=== PATIENT | female | born 1940 | race Caucasian/White ===

== ENCOUNTER 2017-03-17 06:29 | Inpatient (IN) | payer OTHER ==
[~2017-03-17] VITALS: Ht 167.6 cm; Wt 75.9 kg
--- NOTE | ~2017-03-17 | D ---
[facility] [place] [address] DISCHARGE SUMMARY Name: KATERINA BANKS Room #: 213-P ADM IN M.R.#: [id number] Admission: 03/18/17 Attend Phys: John Jacobson MD Discharge: Date of : 38 Report #: [id number] THIS REPORT FOR: //name// CC: David Jacobson HISTORY: The patient is a 76-year-old female with history of AFib and sick sinus syndrome who is here for dual chamber pacemaker implantation. She underwent successful implantation of a [employer] pacemaker and the procedure went without complications. HOSPITAL COURSE: The patient was monitored overnight. Her device was interrogated and found to be functioning normally. Her chest x-ray showed no evidence of pneumothorax and stable lead position. She did have a slight hematoma noted. Postoperative day #1, the patient was complaining of increasing shortness of breath and fatigue. Based on her chest x-ray, it looked like she likely has some COPD and therefore, I recommended pulmonary evaluation. I also thought that maybe there was some pulmonary edema. I checked her proBNP and this was elevated in the 5000 range. I gave her some IV diuretics overnight and she received some nebulizers by the pulmonary service and the following day, she was feeling better. She was denying any chest pain. Her hematoma was still present, but was not intense and there was no drainage. As such, I felt she was stable for discharge home. She was discharged on her same home medications with the exception of her anticoagulant, which I told her not to resume until I saw her back in clinic in 7-10 days. An echo performed while in the hospital showed her EF remains around 45% and there is no pericardial effusion. Discharge instructions were reviewed. Medications were reviewed and she understood to follow up in 7-10 days for her site check and device interrogation. By: [id number] John Jacobson MD /nt
--- NOTE | ~2017-03-17 | 2DMMODE ---
[address] [address] 2 D/M-MODE ECHOCARDIOGRAM Name: KATERINA BANKS Room #: 213-P ADM IN .R.#: [id number] Admission: 03/18/17 Attend Phys: John Jacobson Discharge: Date of : 36 Date of Service: 03/18/17 1506 Report #: [id number] THIS REPORT FOR: //name// APPROVED REPORT Study performed: 03/18/2017 13:11:45 EXAM: Limited 2D Echocardiogram Patient Location: In-Patient Room #: 213 Blood Pressure: 173/87 mmHg HR: 84 bpm Other Information Study Quality: Good Indications Congestive Heart Failure Pacemaker Cardiomyopathy Hypertension/HDD Left Ventricle The left ventricle is normal size. There is normal left ventricular wall thickness. Left ventricular systolic function is mildly decreased. LVEF is 40-45%. Right Ventricle The right ventricle is normal size. The right ventricular systolic function is normal. Pacemaker lead is present in the right ventricle. Aortic Valve The Aortic valve is sclerotic. Mitral Valve Mitral valve leaflets are thickened. Tricuspid Valve The tricuspid valve is normal in structure. Pulmonic Valve The pulmonary valve is normal in structure. [address] [address] 2 D/M-MODE ECHOCARDIOGRAM Name: KATERINA BANKS Room #: 213-P ADM IN .R.#: [id number] Admission: 03/18/17 Attend Phys: John Jacobson Discharge: Date of : 36 Date of Service: 03/18/17 1506 Report #: [id number] Great Vessels Aortic root is dilated. Pericardium There is no pericardial effusion. <Conclusion> The left ventricle is normal size. LVEF is 40-45%. The right ventricle is normal size. Pacemaker lead is present in the right ventricle. The right ventricular systolic function is normal. The Aortic valve is sclerotic. Mitral valve leaflets are thickened. Aortic root is dilated. There is no pericardial effusion. <ELECTRONICALLY SIGNED> By: Jt Haines MD 03/18/17 1506 1506 1506 Jt Haines MD /INF
--- NOTE | ~2017-03-17 | HC ---
[facility] [place] [address] [place] [address] CONSULTATION Name: KATERINA BANKS Room #: 213-P ADM IN M.R.#: [id number] Admission: 03/18/17 Attend Phys: John Jacobson MD Discharge: Date of : 38 Report #: [id number] THIS REPORT FOR: //name// CC: David Jacobson DATE OF SERVICE: 03/18/2017 PRIMARY CARE PHYSICIAN: Dr. David Higginbotham. REFERRAL PHYSICIAN: John Jacobson MD REASON FOR REFERRAL: Hypoxia. HISTORY OF PRESENT ILLNESS: The patient is a 76-year-old white female who is status post placement of a pacemaker, now with hypoxia. A pulmonary consultation was requested. Patient underwent placement of a pacemaker yesterday. During the perioperative period, patient was found to be hypoxic. For that reason, a pulmonary consultation was requested. The patient has smoked for many years, but quit over 20 years ago. She has been told in the past that she has COPD. She also has sleep apnea and is on CPAP. She was not able to use it since admission. Otherwise, she states that she has been doing fairly well from pulmonary standpoint. Currently, she is quite fatigued and tired. She was not able to use her CPAP as mentioned above. Otherwise, denies any productive cough, night sweats or chills. PAST MEDICAL HISTORY: Remarkable for tachy-jerry syndrome, status post permanent pacemaker placement, coronary artery disease, ischemic cardiomyopathy, ejection fraction 40-45%, ascending aortic aneurysm status post repair in 1991, hypotension, JOSEPH on CPAP, breast cancer in the past, ongoing radiation therapy. PAST SURGICAL HISTORY: As mentioned above, includes hysterectomy, lumpectomy. ALLERGIES: Multiple including ATENOLOL, CLONIDINE, CINOBAC, KEFLEX, IBUPROFEN, MACRODANTIN, PENICILLIN, BACTRIM, REGLAN, CLONIDINE causes rash. [facility] [address] [place] [address] CONSULTATION Name: KATERINA BANKS Room #: 213-P [facility] IN [facility]#: [id number] Admission: 03/18/17 Attend Phys: John Jacobson MD Discharge: Date of : 38 Report #: [id number] HOME MEDICATIONS: Reviewed. FAMILY HISTORY: Notable for coronary artery disease in father who passed at the age of 46, mother for cancer, unknown type. SOCIAL HISTORY: She has smoked up till 1991. She lives with a significant other. She is retired. REVIEW OF SYSTEMS: As mentioned above, otherwise 10-point system review negative. PHYSICAL EXAMINATION: GENERAL: She is awake, appears somewhat drowsy and no distress. VITAL SIGNS: Temperature is 98.7 degrees Fahrenheit, pulse is 74, respiratory rate is 18, blood pressure 147/64 mmHg, saturation %. HEENT: Normocephalic, atraumatic. NECK: Supple, without lymphadenopathy or thyromegaly. CHEST: Air movements are reduced due to poor effort. Otherwise, no obvious wheezes or rales. CARDIOVASCULAR: Normal S1, S2. No murmurs or gallop. There is no JVD. There is no carotid bruit. Pulses are 2+/4+ bilaterally. ABDOMEN: Soft, nontender, no organomegaly or masses felt. GENITOURINARY: Deferred. RECTAL: Deferred. EXTREMITIES: There is no edema, cyanosis or clubbing. LABORATORY DATA: Portable chest x-ray shows an elevated right hemidiaphragm. Otherwise, lung hong are clear. Cardiomegaly is present. Electrolytes are normal. WBC 9500, hemoglobin is 15.9, saturation is 93% on 2 liters of O2. IMPRESSION: 1. Hypoxia in this 76-year-old white female with history of chronic obstructive pulmonary disease, obstructive sleep apnea. She recently had a pacemaker placed. Cause of hypoxia may be due to underlying sleep apnea and possible chronic obstructive pulmonary disease. Chest x-ray appears to be clear. I do not think she has aspiration and pulmonary embolus is felt to be less likely. 2. Tachy-jerry syndrome, status post permanent pacemaker placement. 3. Home CPAP. 4. Coronary artery disease, ischemic cardiomyopathy, recommendation would suggest chest physiotherapy, incentive spirometry, bronchodilators for now for presumed chronic obstructive pulmonary disease, followup chest x-ray. Suspect early ambulation along with chest physiotherapy would help. We will also start home CPAP starting to night. [address] [address] CONSULTATION Name: KATERINA BANKS Room #: 213-P ADM IN M.R.#: [id number] Admission: 03/18/17 Attend Phys: John Jacobson MD Discharge: Date of : 38 Report #: [id number] Thank you for the consultation. By: 1306 2255 Dimitri Connors MD /blair
--- NOTE | ~2017-03-17 | P ---
[facility] [place] [address] [place] [address] PROCEDURE REPORT Name: KATERINA BANKS Room #: REG MAINENeo Rosen#: [id number] Admission: 03/17/17 Attend Phys: John Jacobson MD Discharge: Date of : 38 Report #: [id number] THIS REPORT FOR: //name// CC: David Jacobson PROCEDURE: Pacemaker implantation. HISTORY: The patient is a 76-year-old female with history of atrial fibrillation and sick sinus syndrome with symptomatic bradycardia, here for dual-chamber pacemaker implantation. ANESTHESIA: The patient underwent MAC anesthesia, with no anesthesia-related complications. DESCRIPTION OF PROCEDURE: The patient underwent informed consent. We discussed the details of the procedure including the risks, which include but not limited to bleeding, infection, vascular damage, cardiac perforation and pneumothorax. She understood these risks and is willing to proceed. As such, she is brought to the EP laboratory in a fasting and sedated state and prepped and draped in a sterile fashion and received IV antibiotics prior to initiation of the procedure and a venogram was performed to ensure patency of the left axillary vein. Next, I injected 20 mL of lidocaine below the level of the clavicle. Incision was made, pocket was created over the prepectoral fascia and access was obtained twice in the left axillary vein using the extrathoracic approach, which she has positioned using the modified Seldinger technique. Leads were prised into the right ventricular apex and an atrial lead was placed in the lateral right atrium, with both demonstrating adequate pacing and sensing thresholds. The leads were sutured to the prepectoral fascia. The device was connected to the leads and then the pocket was irrigated with vancomycin solution. Also a pursestring suture was placed around the leads as there was some bleeding around the leads from high PA pressures. The device was tested and found to be functioning normally and then the pocket was closed in 3 layers using 2-0 for the deep layer, 3-0 for the mid layer and 4-0 for the subcuticular layer and surgical glue was placed to the outer incision. The patient awoke neurologically and hemodynamically intact, with no complications and no significant bleeding. The implanted pacemaker is a [employer] model# NO1969, serial #[id number]. Atrial lead is a [employer], model #2088TC, 52 cm, serial# [id number]. The atrial lead demonstrated a P-wave of 1.4 millivolts, pacing impedance of 530 ohms and the pacing threshold of 1.25 volts at 0.4 milliseconds. The RV lead was a [employer] model #2088TC, 58 cm, serial #[id number]. The RV lead demonstrated an R-wave of 11.2 millivolts, pacing impedance of 610 ohms and the pacing threshold of 0.5 volts at 0.4 milliseconds. The device was programmed to the DDDR 60-130 mode. [facility] [address] [place] [address] PROCEDURE REPORT Name: KATERINA BANKS Room #: REG JASKARAN Rosen#: [id number] Admission: 03/17/17 Attend Phys: John Jacobson MD Discharge: Date of : 38 Report #: [id number] CONCLUSIONS: 1. Successful dual-chamber pacemaker implantation. 2. Satisfactory atrial and ventricular pacing and sensing thresholds. By: 1057 1159 John Jacobson MD /nt
--- NOTE | ~2017-03-17 | H ---
[facility] [address] [place] [address] HISTORY AND PHYSICAL Name: KATERINA BANKS Room #: 213-P [facility] IN M.R.#: [id number] Admission: 03/18/17 Attend Phys: John Jacobson MD Discharge: 03/19/17 Date of : 38 Report #: [id number] THIS REPORT FOR: //name// For History and Physical, please see office documentation/handwritten note in the patient's medical record. By: 0000 1547 John Jacobson MD /
[~2017-03-17 06:29] MED LIST: AMLODIPINE BESYL5 MG PO; ASPIRIN EC81 M1 PO; CARDIZEM CD360 MG PO; CATAPRES-TTS 10.1 MG PO; CELEXA 20 MG TA20 MG PO; CENTRUM SILVER1 EAC4 PO; COQ-10100 MG PO; CRESTOR10 MG PO; DILTIAZEM 24HR240 M1 PO; DIOVAN320 MG PO; FLONASE 0.05%50 MCG NASAL; HYDRALAZINE 2525 M1 GT; HYDRALAZINE 2525 MG PO; HYDROCHLOROTHIA25 M2 PO; HYDROCHLOROTHIA50 MG PO; IMDUR 30 MG TAB30 M1 PO; IMDUR 60 MG TAB60 M1 PO; INNOPRAN XL80 MG PO; LEVOTHYROXIN0.112 M1 PO; LEVOTHYROXIN0.125 M1 PO; LISINOPRIL20 MG PO; LOFIBRA200 MG PO; MECLIZINE HCL12.5 MG PO; METOPROLOL SUCC50 MG PO; MIRALAX17 GM PO; MULTAQ 400 MG400 MG PO; NORCO 5-325 TA1 EACH PO; NORVASC5 M1 PO; POTASSIUM20 PO; SIMVASTATIN20 MG PO; TESSALON200 MG PO; VALIUM2 MG PO; XARELTO10 MG PO; ZPAK PO
[2017-03-17] MEDS ORDERED: MULTAQ400 MG PO (06:52)
[2017-03-17 06:57] LABS: HEMATOCRIT 45.6 % (37.0-47.0); HEMOGLOBIN 15.3 gm/dL (12.0-15.0); MCHC 33.6 g/dL (28.0-37.0); MCV 92.5 fL (80.0-100.0); RBC 4.93 mil/uL (4.20-5.00); RDW 15.5 % (10.5-14.5); WBC 5.5 thou/uL (4.0-11.0)
[2017-03-17 06:59] VITALS: BP 173/72
[2017-03-17 07:03] LABS: CALCIUM 9.5 mg/dL (8.5-10.1); CREATININE 0.9 mg/dL (0.6-1.0)
[2017-03-17 07:08] LABS: ALBUMIN 3.8 g/dL (3.4-5.0); TOTAL BILIRUBIN 0.7 mg/dL (<0.1-1.0); TOTAL PROTEIN 8.1 g/dL (6.4-8.2)
[2017-03-17 07:12] LABS: APTT 29.6 Seconds (24.5-32.8); PROTIME 10.7 Seconds (9.3-11.4)
[2017-03-17 12:19] VITALS: BP 137/62
[2017-03-17 20:02] VITALS: BP 136/63
[2017-03-18 00:07] VITALS: BP 155/80
[2017-03-18 07:10] VITALS: BP 173/87
[2017-03-18 09:40] LABS: HEMATOCRIT 47.2 % (37.0-47.0); HEMOGLOBIN 15.9 gm/dL (12.0-15.0); MCH 31.1 pg (26.0-34.0); MCHC 33.6 g/dL (28.0-37.0); MCV 92.8 fL (80.0-100.0); RBC 5.09 mil/uL (4.20-5.00); RDW 15.1 % (10.5-14.5); WBC 9.5 thou/uL (4.0-11.0)
[2017-03-18 10:09] LABS: ALBUMIN 3.5 g/dL (3.4-5.0); CALCIUM 9.2 mg/dL (8.5-10.1); CREATININE 0.9 mg/dL (0.6-1.0); POTASSIUM 3.6 mmol/L (3.5-5.1); TOTAL BILIRUBIN 0.9 mg/dL (<0.1-1.0); TOTAL PROTEIN 7.9 g/dL (6.4-8.2)
[2017-03-18 11:30] VITALS: BP 147/64
[2017-03-18 15:50] VITALS: BP 148/66
[2017-03-18 20:49] VITALS: BP 122/59
[2017-03-19 04:02] LABS: CALCIUM 9.2 mg/dL (8.5-10.1); POTASSIUM 3.5 mmol/L (3.5-5.1)
[2017-03-19 04:45] VITALS: BP 133/59
[2017-03-19 07:50] VITALS: BP 115/62
[2017-03-19 11:20] VITALS: BP 122/61
[2017-03-19 13:07] VITALS: BP 122/61
== END 2017-03-19 14:28 | disposition home or self-care (01) | DRG 242 ==
LOC: CATH 06:29 → 2N 12:19
PROVIDERS: Internal Medicine Cardiovascular Disease
PROC: 02H63JZ Insertion of Pacemaker Lead into Right Atrium, Percutaneous Approach (ICD-10-PCS; principal; 2017-03-17)
PROC: 02HK3JZ Insertion of Pacemaker Lead into Right Ventricle, Percutaneous Approach (ICD-10-PCS; principal; 2017-03-17)
PROC: 0JH606Z Insertion of Pacemaker, Dual Chamber into Chest Subcutaneous Tissue and Fascia, Open Approach (ICD-10-PCS; principal; 2017-03-17)
DX: I49.5 Sick sinus syndrome (principal); J96.01 Acute respiratory failure with hypoxia; I25.10 Atherosclerotic heart disease of native coronary artery without angina pectoris; I71.2 Thoracic aortic aneurysm, without rupture; I10 Essential (primary) hypertension; E78.5 Hyperlipidemia, unspecified; Z60.2 Problems related to living alone; G47.33 Obstructive sleep apnea (adult) (pediatric); I48.91 Unspecified atrial fibrillation; J44.9 Chronic obstructive pulmonary disease, unspecified; I25.5 Ischemic cardiomyopathy; Z90.710 Acquired absence of both cervix and uterus; Z88.0 Allergy status to penicillin; Z88.1 Allergy status to other antibiotic agents; Z79.899 Other long term (current) drug therapy; Z88.4 Allergy status to anesthetic agent; Z82.49 Family history of ischemic heart disease and other diseases of the circulatory system; Z80.9 Family history of malignant neoplasm, unspecified; Z85.3 Personal history of malignant neoplasm of breast; Z87.891 Personal history of nicotine dependence
CPT/HCPCS: 10081; 62110; 70005

== ENCOUNTER 2017-04-02 15:44 | Inpatient (IN) | payer OTHER ==
[~2017-04-02] VITALS: Ht 167.6 cm; Wt 76.2 kg
--- NOTE | ~2017-04-02 | EKG ---
[address] [place] [address] ELECTROCARDIOGRAM REPORT Name: KATERINA BANKS Room #: 214-P [facility] IN M.R.#: [id number] Admission: 04/02/17 Attend Phys: Trino Garcia MD Discharge: 04/03/17 Date of : 38 Report #: [id number] THIS REPORT FOR: //name// [facility] ED Test Date: 2017-04-02 Test Time: 15:56:12 Pat Name: KATERINA BANKS Department: Room: [facility] Gender: F Executive Marketing Assistant: KHANH : 1940 Requested By: Martin Garza Order Number: [id number] MD: James Jimenez Measurements Intervals [place] Rate: 60 P: VA: 223 QRS: 23 QRSD: 132 T: 139 QT: 493 QTc: 493 Interpretive Statements Sinus rhythm Borderline prolonged VA interval Incomplete Left bundle branch block Compared to ECG 01/01/2017 08:54:42 Left bundle-branch block now present Ectopic atrial tachycardia, unifocal no longer present Electronically Signed On 04-04-2017 13:48:34 CDT by James Jimenez [email or web address] <ELECTRONICALLY SIGNED> By: James Jimenez MD, [facility] 04/04/17 1348 1556 1556 James Jimenez MD, [facility] /EPI
--- NOTE | ~2017-04-02 | HC ---
[facility] [place] [address] CONSULTATION Name: KATERINA BANKS Room #: 214-P [facility] IN ..#: [id number] Admission: 04/02/17 Attend Phys: Trino Garcia MD Discharge: 04/03/17 Date of : 38 Report #: [id number] THIS REPORT FOR: //name// CC: David Garcia HISTORY OF PRESENT ILLNESS: The patient is a 76-year-old female well known to us. She has had just recently a pacemaker placed by Dr. Jacobson. She has had chronic dizziness and longstanding coronary artery disease with a chronically occluded right coronary artery. Ejection fraction 45-50% range with a mild to moderate MR and TR, moderate AI. She has had a prior ascending aortic stent graft. She has had some underlying significant chronic obstructive pulmonary disease and some paroxysmal atrial fibrillation. Chronic vertigo. Multiple drug allergies. Had 2 episodes of epigastric discomfort with them, associated with some left arm and shoulder. Enzymes are negative. Her EKG does not have any significant changes on it. She has intermittently paced. HOME MEDICATIONS: Have been diltiazem 360, Xarelto 20, Multaq 400 b.i.d., valsartan 320, potassium 20, Crestor 10, Imdur 60, levothyroxine and CoQ10. PAST MEDICAL HISTORY: Positive for coronary artery disease, sick sinus syndrome, atrial fibrillation, tachybrady with recent pacemaker placement, hypercholesterolemia, hysterectomy, coronary artery disease with an occluded right coronary artery, which has been collateralized. Mild ischemic cardiomyopathy, functional class 1 aortic dissection repair same aorta 1991. She has had breast cancer and a lumpectomy in the left breast. REVIEW OF SYSTEMS: Essentially negative except for stated above. SOCIAL HISTORY: She is no alcohol use. She is a prior smoker. She quit 20 years ago. FAMILY HISTORY: Father of coronary artery disease at age 46. Mother of cancer. ALLERGIES: ATENOLOL, CLONIDINE, PENICILLIN, KEFLEX, MACRODANTIN, ATORVASTATIN, SIMVASTATIN, REGLAN AND IBUPROFEN. PHYSICAL EXAMINATION: VITAL SIGNS: Blood pressure 140/78, pulse is 60 and regular. HEENT: Eyes reveal xanthelasmas. Pharynx is clear. NECK: Shows preserved upstrokes without JVD or bruits. ABDOMEN: Slightly tender in the epigastric area. EXTREMITIES: Reveal trace nonpitting edema. The left upper extremity pacemaker site incision is clean and dry. There is some ecchymosis resolving, this was placed 10 days prior. Extremities reveal trace of nonpitting edema. NEUROLOGIC: Nonfocal. [address] [address] CONSULTATION Name: KATERINA BANKS Room #: 214-P [facility] IN ..#: [id number] Admission: 04/02/17 Attend Phys: Trino Garcia MD Discharge: 04/03/17 Date of : 38 Report #: [id number] SKIN: Warm and dry without xanthoma or ulcer. MUSCULOSKELETAL: Generalized arthritic changes. DISCHARGE DIAGNOSES: 1. Chest pain, suspect noncardiac, negative enzymes. 2. History of paroxysmal or atrial fibrillation and sick sinus syndrome, status post pacemaker, stable. 3. Hypertension. 4. Hypercholesterolemia. 5. Coronary artery disease with history of an occluded right coronary artery, I suspect GI etiology of this chest pain. 6. Chronic vertigo. RECOMMENDATIONS AND PLAN: Would recommend Deridder diet in addition of a PPI, continue home medications. We will obtain outpatient nuclear stress testing pharmacologic this week. She will call with any recurrent pain. She still to avoid left upper extremity use due to the recent pacemaker. This was recently interrogated by Dr. Jacobson this week and that is scheduled to be reinterrogated in June. She will call with any recurrent issues. By: 0935 1258 Tono Bender MD, FACC /nt
[2017-04-02 15:44] VITALS: BP 141/58
[~2017-04-02 15:44] MED LIST changes: +MULTAQ400 MG PO
[2017-04-02 16:14] LABS: ABSOLUTE NEUTROPHILS 5.4 thou/uL (1.4-8.2); BASOPHILS 0.8 % (0.0-2.0); EOSINOPHILS 3.1 % (0.0-3.0); HEMATOCRIT 41.3 % (37.0-47.0); HEMOGLOBIN 14.1 gm/dL (12.0-15.0); LYMPHOCYTES 12.8 % (24.0-44.0); MCH 31.6 pg (26.0-34.0); MCHC 34.1 g/dL (28.0-37.0); MCV 92.6 fL (80.0-100.0); MONOCYTES 7.8 % (1.0-8.0); PLATELET COUNT 250 thou/uL (150-400); POLYS 75.5 % (36.0-66.0); RBC 4.46 mil/uL (4.20-5.00); RDW 14.7 % (10.5-14.5); WBC 7.2 thou/uL (4.0-11.0)
[2017-04-02 16:16] LABS: MANUAL DIFF NO
[2017-04-02 16:22] LABS: CALCIUM 8.9 mg/dL (8.5-10.1); POTASSIUM 3.8 mmol/L (3.5-5.1)
[2017-04-02 16:34] LABS: TROPONIN-I 0.04 ng/mL (<0.04-0.07)
[2017-04-02 17:40] VITALS: BP 149/56
[2017-04-02] MEDS ORDERED: XARELTO20 MG PO (17:42)
[2017-04-02 18:09] VITALS: BP 157/58
[2017-04-02 22:13] LABS: URINE BILIRUBIN NEGATIVE (Negative); URINE BLOOD NEGATIVE (Negative); URINE COLOR YELLOW; URINE GLUCOSE-RANDOM* NEGATIVE (Negative); URINE KETONES NEGATIVE (Negative); URINE NITRITE NEGATIVE (Negative); URINE PROTEIN (DIPSTICK) NEGATIVE (Negative); URINE UROBILINOGEN 0.2 E.U./dl (0.2-1.0)
[2017-04-03 00:15] VITALS: BP 135/66
[2017-04-03 03:23] LABS: ALBUMIN 3.3 g/dL (3.4-5.0); CALCIUM 8.7 mg/dL (8.5-10.1); CREATININE 0.9 mg/dL (0.6-1.0); TOTAL BILIRUBIN 0.4 mg/dL (<0.1-1.0); TOTAL PROTEIN 6.9 g/dL (6.4-8.2); TROPONIN-I 0.05 ng/mL (<0.04-0.07)
[2017-04-03 04:22] LABS: HEMATOCRIT 45.4 % (37.0-47.0); HEMOGLOBIN 15.3 gm/dL (12.0-15.0); MCH 31.5 pg (26.0-34.0); MCHC 33.7 g/dL (28.0-37.0); MCV 93.5 fL (80.0-100.0); RBC 4.85 mil/uL (4.20-5.00); RDW 14.9 % (10.5-14.5); WBC 7.1 thou/uL (4.0-11.0)
[2017-04-03 04:35] VITALS: BP 160/81
[2017-04-03 07:19] VITALS: BP 149/75
[2017-04-03] MEDS ORDERED: ANTIVERT25 MG PO (09:30)
[2017-04-03] MEDS ORDERED: PROTONIX 20 MG20 M1 PO (09:31)
[2017-04-03 11:12] VITALS: BP 149/75
[2017-04-03 12:55] VITALS: BP 149/75
== END 2017-04-03 12:15 | disposition home or self-care (01) | DRG 392 ==
LOC: ER 15:44 → EROBS 17:09 → 2N 17:45
PROVIDERS: Family Medicine; Nurse Practitioner
DX: K21.9 Gastro-esophageal reflux disease without esophagitis (principal); I50.22 Chronic systolic (congestive) heart failure; E78.00 Pure hypercholesterolemia, unspecified; F41.9 Anxiety disorder, unspecified; I48.91 Unspecified atrial fibrillation; I25.10 Atherosclerotic heart disease of native coronary artery without angina pectoris; I49.5 Sick sinus syndrome; G47.33 Obstructive sleep apnea (adult) (pediatric); I11.0 Hypertensive heart disease with heart failure; I35.1 Nonrheumatic aortic (valve) insufficiency; Z85.3 Personal history of malignant neoplasm of breast; Z82.49 Family history of ischemic heart disease and other diseases of the circulatory system; Z88.1 Allergy status to other antibiotic agents; Z88.8 Allergy status to other drugs, medicaments and biological substances; Z90.710 Acquired absence of both cervix and uterus; I25.2 Old myocardial infarction; Z88.0 Allergy status to penicillin; Z87.891 Personal history of nicotine dependence; Z79.899 Other long term (current) drug therapy; Z95.0 Presence of cardiac pacemaker; Z80.9 Family history of malignant neoplasm, unspecified
CPT/HCPCS: 10081

== ENCOUNTER → 2017-04-23 | Outpatient (CLI) | payer OTHER ==
[~2017-04-23] VITALS: Ht 167.6 cm; Wt 76.2 kg
[~2017-04-23] MED LIST changes: +ANTIVERT25 MG PO; +PROTONIX 20 MG20 M1 PO; +UNICOMPLEX M TA1 TA1 PO; +XARELTO20 MG PO
[2017-04-23 07:03] VITALS: BP 152/87
[2017-04-23 07:15] LABS: ABSOLUTE NEUTROPHILS 4.8 thou/uL (1.4-8.2); BASOPHILS 0.8 % (0.0-2.0); EOSINOPHILS 3.6 % (0.0-3.0); HEMATOCRIT 48.9 % (37.0-47.0); HEMOGLOBIN 16.6 gm/dL (12.0-15.0); LYMPHOCYTES 19.1 % (24.0-44.0); MCH 32.3 pg (26.0-34.0); MCV 94.9 fL (80.0-100.0); PLATELET COUNT 216 thou/uL (150-400); POLYS 67.5 % (36.0-66.0); RBC 5.15 mil/uL (4.20-5.00); RDW 15.8 % (10.5-14.5); WBC 7.1 thou/uL (4.0-11.0)
[2017-04-23 07:19] LABS: MANUAL DIFF NO
[2017-04-23 07:27] LABS: CALCIUM 9.4 mg/dL (8.5-10.1); POTASSIUM 3.8 mmol/L (3.5-5.1)
[2017-04-23 07:32] LABS: ALBUMIN 3.9 g/dL (3.4-5.0); TOTAL BILIRUBIN 0.6 mg/dL (<0.1-1.0); TOTAL PROTEIN 8.1 g/dL (6.4-8.2)
[2017-04-23 08:09] LABS: INR 1.6
[2017-04-23 08:12] LABS: PROTIME 16.5 Seconds (9.3-11.4)
[2017-04-23 08:13] LABS: APTT 39.2 Seconds (24.5-32.8)
== END | disposition home or self-care (01) ==
LOC: CATH 06:45
PROVIDERS: Internal Medicine Cardiovascular Disease
DX: I48.91 Unspecified atrial fibrillation (principal); I10 Essential (primary) hypertension; I25.2 Old myocardial infarction; I25.10 Atherosclerotic heart disease of native coronary artery without angina pectoris; I49.5 Sick sinus syndrome; E78.5 Hyperlipidemia, unspecified; E03.9 Hypothyroidism, unspecified; F41.9 Anxiety disorder, unspecified; G47.33 Obstructive sleep apnea (adult) (pediatric); Z95.0 Presence of cardiac pacemaker; Z87.891 Personal history of nicotine dependence; Z98.890 Other specified postprocedural states; Z88.8 Allergy status to other drugs, medicaments and biological substances; Z88.0 Allergy status to penicillin; Z79.899 Other long term (current) drug therapy
CPT/HCPCS: 62110; 62900

== ENCOUNTER 2017-06-04 08:44 | Inpatient (IN) | payer OTHER ==
[~2017-06-04] VITALS: Ht 162.6 cm; Wt 78.5 kg
[2017-06-04] VITALS (12 sets, daily range): BP systolic 111–152; BP diastolic 58–89
--- NOTE | ~2017-06-04 | HC ---
[facility] [place] [address] CONSULTATION Name: KATERINA BANKS Room #: REG [facility].#: [id number] Admission: 06/04/17 Attend Phys: John Jacobson MD Discharge: Date of : 38 Report #: [id number] THIS REPORT FOR: //name// CC: David Jacobson REASON FOR CONSULTATION: Congestive heart failure. HISTORY OF PRESENT ILLNESS: The patient is a 76-year-old female with history of coronary artery disease status post pacemaker implantation in March 2017 as well as recent cardioversions in April 2017 for atrial flutter. She did well for approximately a month when she called the clinic on Wednesday with recurrent palpitations. She came in the clinic yesterday and she was found to be in an atrial flutter. I attempted to pace her out of this, but this was unsuccessful. As such, I recommended that she comes in today for an elective cardioversion. She was looking rate prior to the cardioversion, underwent successful cardioversion with 100 joules synchronized shock. As such discharge orders were written and plans were made for her to follow up with me in a month. However, she eventually started developing increased shortness of breath and I was asked to see her. She appeared to be in some respiratory distress with O2 sats in the high 80s. I re-interrogated her pacemaker and it showed that she remained in sinus rhythm. She is being paced at a faster heart rate at 90-100 using an AFib suppression algorithm to hopefully keep her in normal rhythm. She denies any chest pain or chest tightness. PAST MEDICAL HISTORY: 1. Coronary artery disease, status post occluded right coronary artery. 2. Cardiomyopathy, EF of 40-45% based on echo in December 2016 with evidence of severe left atrial enlargement. 3. Paroxysmal AFib. 4. Aortic dissection, status post repair. 5. Hypertension. 6. Hyperlipidemia. 7. Obstructive sleep apnea. 8. Breast cancer. 9. Sick sinus syndrome, status post dual chamber [employer] pacemaker in March 2017. 10. DC cardioversion in April 2017 and 06/04/2017. Other medical problems, she was recently told by Dr. Connors that she has COPD. MEDICATIONS: Include Multaq, Bystolic, diltiazem and Xarelto. She is also on rosuvastatin, valsartan, Synthroid and Ativan. SOCIAL HISTORY: She does not smoke. FAMILY HISTORY: Noncontributory. [facility] [address] [place] [address] CONSULTATION Name: KATERINA BANKS Room #: REG [facility]#: [id number] Admission: 06/04/17 Attend Phys: John Jacobson MD Discharge: Date of : 38 Report #: [id number] ALLERGIES: Include multiple medications including atenolol, atorvastatin, Bactrim, cephalexin, clonidine, ibuprofen, metoclopramide, nitrofurantoin, penicillin G, simvastatin. PHYSICAL EXAMINATION: VITAL SIGNS: Heart rate is in the 80s-90s, blood pressure is stable, sats are now in the low 90s after we bumped up her oxygen to 5 liters. GENERAL: She is in mild respiratory distress. She is somewhat anxious, which is pretty normal for her. HEENT: Oropharynx is clear. NECK: Supple, no thyromegaly. HEART: Regular rate and rhythm with no murmurs, rubs, gallops. LUNGS: Clear bilaterally with some mild wheezes. ABDOMEN: Soft, nontender, nondistended with no hepatosplenomegaly. EXTREMITIES: There is no clubbing, cyanosis, edema. NEUROLOGIC: Cranial nerves 2-12 are intact. LABORATORY DATA: White count today 7.9, hemoglobin 16.2, platelets 200. Sodium is 139, potassium 4.3, creatinine is 1.0 ____. ASSESSMENT AND PLAN: In summary, the patient is a 76-year-old with history of coronary artery disease, congestive heart failure, AFib, status post cardioversion as well as chronic obstructive pulmonary disease. She is now in some mild respiratory distress with decreased oxygen saturations . This is probably from an acute exacerbation of her congestive heart failure due to the fact that she has been in atrial flutter with rapid ventricular response. There also may be a component of COPD and I would therefore recommend having the pulmonary service ____ as well. I have given her dose of Lasix and a breathing treating. We will get a chest x-ray and an echocardiogram and she can continue her home medications. By: 1224 1401 John Jacobson MD /nt
--- NOTE | ~2017-06-04 | EKG ---
[place] [address] [employer] [facility] [place] [address] ELECTROCARDIOGRAM REPORT Name: KATERINA BANKS Room #: 214-P [facility] IN M.R.#: [id number] Admission: 06/04/17 Attend Phys: Terry Acevedo MD Discharge: 06/06/17 Date of : 38 Report #: [id number] THIS REPORT FOR: //name// [facility] Test Date: 2017-06-04 Test Time: 12:37:06 Pat Name: KATERINA BANKS Department: Room: 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 [employer]: VICKIE : 1940 Requested By: John Jacobson Order Number: [id number] MD: James Jimenez Measurements Intervals [place] Rate: 108 P: 0 AR: 114 QRS: 60 QRSD: 112 T: 118 QT: 388 QTc: 520 Interpretive Statements Ventricular pacing No further analysis attempted due to paced rhythm Baseline wander in lead(s) II,III,aVR,aVL,aVF,V4,V6 Compared to ECG 04/02/2017 15:56:12 Ventricular pacing is now noted Electronically Signed On 06-08-2017 8:27:55 CDT by James Jimenez [email or web address] <ELECTRONICALLY SIGNED> By: James Jimenez MD, [facility] 06/08/17 0827 1237 1237 James Jimenez MD, FAC /EPI
--- NOTE | ~2017-06-04 | HC ---
[facility] [place] [address] CONSULTATION Name: KATERINA BANKS Room #: 238-P ADM IN M.R.#: [id number] Admission: 06/04/17 Attend Phys: Terry Acevedo MD Discharge: Date of : 36 Report #: [id number] THIS REPORT FOR: //name// CC: Terry Higginbotham PRIMARY PHYSICIAN: David Higginbotham MD REFERRAL PHYSICIAN: John Jacobson MD REASON FOR REFERRAL: Acute respiratory distress. HISTORY OF PRESENT ILLNESS: The patient is a 76-year-old white female who was known to this physician, now with acute respiratory distress. A pulmonary consultation was requested. The patient is known to this physician from her recent hospitalization. She was found to be hypoxic and felt to be related to COPD along with sleep apnea. Earlier today, she was undergoing cardioversion for her atrial flutter. Following the procedure, the patient began to complain of dyspnea along with hypoxia. Portable chest x-ray performed shows cardiomegaly with Virginie B lines consistent with heart failure. She was placed on O2 and subsequently on BiPAP. She was given diuretics. Since then, she is much improved. Chest discomfort has also improved. Otherwise, denies any chest pain, recent febrile illness, nausea, or vomiting. PAST MEDICAL HISTORY: COPD, JOSEPH on CPAP, coronary artery disease, ischemic cardiomyopathy with ejection fraction approximately 40%, paroxysmal atrial fibrillation, aortic dissection, status post repair; hypertension, hyperlipidemia, history of breast cancer, sick sinus syndrome, status post dual-chamber St. Catrachito permanent pacemaker placement in March 2017, status post radiation therapy for breast cancer. PAST SURGICAL HISTORY: As above including hysterectomy and lumpectomy. ALLERGIES: Multiple including ATENOLOL, CLONIDINE, CINOBAC, KEFLEX, IBUPROFEN, MACRODANTIN, PENICILLIN, BACTRIM, and REGLAN, some causes rash. HOME MEDICATIONS: Reviewed. FAMILY HISTORY: Notable for coronary artery disease in the father who at the age of 46. Mother with cancer of unknown type. SOCIAL HISTORY: The patient lives boyfriend. She is retired. She has [facility] [address] [place] [address] CONSULTATION Name: KATERINA BANKS Room #: 238-P [facility] IN [facility].#: [id number] Admission: 06/04/17 Attend Phys: Terry Acevedo MD Discharge: Date of : 38 Report #: [id number] smoked most of her life until 1991. REVIEW OF SYSTEMS: As above, otherwise 10-point system review negative. PHYSICAL EXAMINATION: GENERAL: She is awake, alert, in mild respiratory distress. VITAL SIGNS: Temperature is 97 degrees Fahrenheit, pulse is 112, respiratory rate is 31, blood pressure 152/89 mmHg, and saturation 94%. HEENT: Normocephalic, atraumatic. NECK: Supple, without any lymphadenopathy or thyromegaly. CHEST: Breath sounds are fair with few scattered crackles. No wheezes. CARDIOVASCULAR: Irregularly irregular. No obvious murmurs or gallop. Pulses are 2+/4+ bilaterally. ABDOMEN: Soft, nontender. No organomegaly or masses felt. GENITOURINARY: Deferred. RECTAL: Deferred. EXTREMITIES: There is no edema, cyanosis, or clubbing. LABORATORY DATA: Portable chest x-ray as mentioned above showing cardiomegaly, and Virginie B lines. Repeat echocardiogram performed earlier today shows ejection fraction now at 20%, left ventricle was dilated, left ventricular function is severely depressed, there is evidence of segmental wall motion abnormalities, right ventricle is dilated, severely dilated left atrium along with mildly dilated right atrium, [id number]-jj-zabbcyfr aortic regurgitation, uhnpoeyn-fg-mcdlaw mitral regurgitation, pulmonary artery pressure measuring about 60-65 mmHg. Troponin is 0.07. Arterial blood gas revealed pH 7.31, pCO2 of 48, pO2 93 on 100% FiO2. Electrolytes are normal. Creatinine is 1.0. Liver function profile is mildly elevated. WBC is 7900, hemoglobin 16.2. IMPRESSION: 1. Acute hypercapnic hypoxic respiratory failure in this 76-year-old white female. This is likely due to heart failure. Chronic obstructive pulmonary disease is likely contributing. 2. Chronic obstructive pulmonary disease, mild impairment. 3. Right diaphragmatic weakness, etiology unclear at this time. 4. Coronary artery disease with ischemic cardiomyopathy, ejection fraction now down to 20% with left ventricular dilatation, right ventricle dilatation. 5. Pulmonary hypertension secondary to pulmonary disease along with cardiomyopathy, pulmonary artery pressure as mentioned above. 6. Paroxysmal atrial fibrillation/flutter. 7. Hypertension. 8. Sick sinus syndrome, status post dual-chamber St. Catrachito permanent pacemaker placement. RECOMMENDATION: Continue diuresis as you are. Wean O2 if her saturation 90%. BiPAP p.r.n. The patient to resume home CPAP for sleep apnea. We will continue [facility] [address] [place] [address] CONSULTATION Name: KATERINA BANKS Room #: 238-P [facility] IN .R.#: [id number] Admission: 06/04/17 Attend Phys: Terry Acevedo MD Discharge: Date of : 38 Report #: [id number] bronchodilator therapy for now. Her COPD is mild. DVT and GI prophylaxis will be addressed. The patient can resume diet as tolerated. Thank you for this consultation. By: [id number] ANAYA Holman /blair
--- NOTE | ~2017-06-04 | 2DMMODE ---
[facility] [place] [address] 2 D/M-MODE ECHOCARDIOGRAM Name: KATERINA BANKS Room #: REG [facility]#: [id number] Admission: 06/04/17 Attend Phys: John Jacobson Discharge: Date of : 36 Date of Service: 06/04/17 1331 Report #: [id number] THIS REPORT FOR: //name// APPROVED REPORT Study performed: 06/04/2017 12:49:18 EXAM: Limited 2D, Doppler, and color-flow Echocardiogram Patient Location: CVL Status: NII Other Information Study Quality: Adequate Indications Short of breath s/p cardioversion. Hx: ISCM (40-45% 03/2017) PAF, pacemaker, aorta dissection with repair in 1991. COPD, HTN, HLP 2D Dimensions Aortic Root: 44.01 mm Tricuspid Valve TR Peak Randy.: 3.49 m/s RAP Estimate: 15.00 mmHg TR Peak Gr.: 48.70 mmHg Left Ventricle Left ventricle is dilated. Left ventricular systolic function is severely decreased. LVEF is 20%. WITH SEGMENTAL WALL MOTION ABNORMALITIES Right Ventricle Right ventricle is dilated. Right ventricular systolic function is moderately reduced. Atria Left atrium is severely dilated. Atrial septa appears aneurysmal. Right atrium is moderately dilated. Aortic Valve Aortic valve is calcified. Mild to moderate aortic regurgitation. Mitral Valve Mitral valve is normal in structure. Moderate to severe mitral regurgitation [facility] [address] [place] [address] 2 D/M-MODE ECHOCARDIOGRAM Name: KATERINA BANKS Room #: REG [facility]#: [id number] Admission: 06/04/17 Attend Phys: John Jacobson Discharge: Date of : 38 Date of Service: 06/04/17 1331 Report #: [id number] Tricuspid Valve Tricuspid valve is grossly normal in structure There is moderate tricuspid regurgitation. The right atrial pressure is estimated at 15 mmHg. There is moderate pulmonary hypertension with an estimated PAP of 60-65mmHg. Great Vessels Aortic root is dilated. IVC is dilated and collapses <50% with inspiration. Pericardium There is no pericardial effusion. <Conclusion> Left ventricle is dilated. Left ventricular systolic function is severely decreased. LVEF is 20%. WITH SEGMENTAL WALL MOTION ABNORMALITIES Right ventricle is dilated. Right ventricular systolic function is moderately reduced. Left atrium is severely dilated. Right atrium is moderately dilated. Aortic valve is calcified. Mild to moderate aortic regurgitation. Mitral valve is normal in structure. Moderate to severe mitral regurgitation Tricuspid valve is grossly normal in structure There is moderate tricuspid regurgitation. The right atrial pressure is estimated at 15 mmHg. There is moderate pulmonary hypertension with an estimated PAP of 60-65mmHg. <ELECTRONICALLY SIGNED> By: Jt Haines MD 06/04/171330 30 30 Jt Haines MD /INF
--- NOTE | ~2017-06-04 | P ---
[facility] [place] [address] PROCEDURE REPORT Name: KATERINA BANKS [id number] Admission: 06/04/17 Attend Phys: John Jacobson MD Discharge: Date of : 38 Report #: [id number] THIS REPORT FOR: //name// CC: David Jacobson DATE OF SERVICE: 06/04/2017. PROCEDURE: Cardioversion. PREOPERATIVE DIAGNOSIS: Atrial flutter. POSTOPERATIVE DIAGNOSIS: Atrial flutter. BRIEF HISTORY: The patient is a 76-year-old status post pacemaker implantation for sick sinus syndrome, who underwent recent cardioversion for atrial flutter and had recurrence. In the clinic yesterday I tried out of this which was unsuccessful. She is here for cardioversion. DESCRIPTION OF PROCEDURE: The patient underwent informed consent, she was prepped and draped in a standard fashion. She was then sedated by the Anesthesiology service and a 100 joule synchronized cardioversion resulted in mosque of sinus rhythm. Pacemaker was checked and found to be functioning normally. DISCHARGE CONCLUSIONS: Successful DC cardioversion. By: 1133 1301 John Jacobson MD /nt
[2017-06-04] MEDS ORDERED: LEVOTHYROXIN0.125 M1 PO (09:26)
[2017-06-04 09:38] LABS: HEMOGLOBIN 16.2 gm/dL (12.0-15.0); MCH 31.6 pg (26.0-34.0); RBC 5.11 mil/uL (4.20-5.00); RDW 15.8 % (10.5-14.5); WBC 7.9 thou/uL (4.0-11.0)
[2017-06-04 09:54] LABS: CALCIUM 9.7 mg/dL (8.5-10.1); POTASSIUM 4.3 mmol/L (3.5-5.1)
[2017-06-04 09:58] LABS: ALBUMIN 3.8 g/dL (3.4-5.0); TOTAL BILIRUBIN 0.9 mg/dL (<0.1-1.0); TOTAL PROTEIN 8.2 g/dL (6.4-8.2)
[2017-06-04 12:53] LABS: ABG SAMPLE TYPE ARTERIAL; BE(vivo) -2.9 mmol/L (-2 to +3); HCO3 23.9 mmol/L (22.0-26.0); LACTATE 1.64 mmol/L (0.5-2.0); O2(CT) 23.9 mL/dL (15.0-23.0); O2Hb 95.4 % (92.0-98.0); PCO2 48.3 mmHg (35.0-45.0); PO2 93.6 mmHg (80.0-100.0); STICK SITE L.BRACHIAL; pH 7.312 (7.360-7.450); sO2 96.5 % (92.0-98.0); tCO2 25.4 mmol/L (24.0-30.0)
[2017-06-04 13:36] LABS: TROPONIN-I 0.07 ng/mL (<0.04-0.07)
[2017-06-05] VITALS (17 sets, daily range): BP systolic 90–156; BP diastolic 46–87
[2017-06-05 05:25] LABS: HEMATOCRIT 46.7 % (37.0-47.0); MCH 32.2 pg (26.0-34.0); MCHC 34.3 g/dL (28.0-37.0); MCV 94.1 fL (80.0-100.0); PLATELET COUNT 163 thou/uL (150-400); RBC 4.96 mil/uL (4.20-5.00); RDW 15.3 % (10.5-14.5); WBC 7.9 thou/uL (4.0-11.0)
[2017-06-05 05:35] LABS: MANUAL DIFF YES
[2017-06-05 05:36] LABS: CALCIUM 8.6 mg/dL (8.5-10.1)
[2017-06-05 05:38] LABS: POTASSIUM 3.1 mmol/L (3.5-5.1)
[2017-06-05 06:56] LABS: ABSOLUTE NEUTROPHILS 7.3 thou/uL (1.4-8.2); TOTAL CELL COUNT 100
[2017-06-05 06:57] LABS: ANISOCYTOSIS 1+
[2017-06-05 06:58] LABS: LARGE PLATELETS FEW; POLYCHROMASIA OCCASIONAL
[2017-06-05 12:27] LABS: CALCIUM 8.7 mg/dL (8.5-10.1); CREATININE 1.4 mg/dL (0.6-1.0); MAGNESIUM 1.7 mg/dL (1.8-2.4); POTASSIUM 3.5 mmol/L (3.5-5.1)
[2017-06-06 03:00] VITALS: BP 129/77
[2017-06-06 05:30] LABS: ALBUMIN 3.2 g/dL (3.4-5.0); CALCIUM 8.9 mg/dL (8.5-10.1); CREATININE 1.2 mg/dL (0.6-1.0); PHOSPHORUS 3.6 mg/dL (2.5-4.9); POTASSIUM 4.1 mmol/L (3.5-5.1)
[2017-06-06 08:00] VITALS: BP 120/63
[2017-06-06] MEDS ORDERED: LASIX 40 MG TAB40 MG PO (08:24)
[2017-06-06 09:54] VITALS: BP 129/77
[2017-06-06 10:09] VITALS: BP 129/77
== END 2017-06-06 10:58 | disposition home or self-care (01) | DRG 291 ==
LOC: CATH 08:44 → ICU 15:53 → CATH 16:07 → 2N 06-05 17:34
PROVIDERS: Hospitalist; Internal Medicine; Internal Medicine Cardiovascular Disease; Internal Medicine Pulmonary Disease
PROC: 5A2204Z Restoration of Cardiac Rhythm, Single (ICD-10-PCS; principal; 2017-06-04)
PROC: 5A09357 Assistance with Respiratory Ventilation, Less than 24 Consecutive Hours, Continuous Positive Airway Pressure (ICD-10-PCS; 2017-06-04)
DX: I11.0 Hypertensive heart disease with heart failure (principal); J96.01 Acute respiratory failure with hypoxia; J96.02 Acute respiratory failure with hypercapnia; I71.00 Dissection of unspecified site of aorta; I48.92 Unspecified atrial flutter; I38 Endocarditis, valve unspecified; I50.23 Acute on chronic systolic (congestive) heart failure; I25.10 Atherosclerotic heart disease of native coronary artery without angina pectoris; I48.0 Paroxysmal atrial fibrillation; E78.5 Hyperlipidemia, unspecified; G47.33 Obstructive sleep apnea (adult) (pediatric); I49.5 Sick sinus syndrome; J44.9 Chronic obstructive pulmonary disease, unspecified; I25.5 Ischemic cardiomyopathy; I27.2 Other secondary pulmonary hypertension; E87.6 Hypokalemia; E83.42 Hypomagnesemia; Z88.0 Allergy status to penicillin; Z88.8 Allergy status to other drugs, medicaments and biological substances; Z88.6 Allergy status to analgesic agent; Z95.0 Presence of cardiac pacemaker; Z85.3 Personal history of malignant neoplasm of breast; Z88.1 Allergy status to other antibiotic agents; Z82.49 Family history of ischemic heart disease and other diseases of the circulatory system
CPT/HCPCS: 10078; 10081; 62110; 62900

== ENCOUNTER 2017-07-08 19:20 | Inpatient (IN) | payer OTHER ==
[~2017-07-08] VITALS: Ht 5 cm; Wt 73.9 kg
--- NOTE | ~2017-07-08 | EKG ---
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 : 1940 Requested By: Carl Yu Order Number: [id number] MD: James Jimenez Measurements Intervals [place] Rate: 152 P: 0 [place]: QRS: -45 QRSD: 170 T: 148 QT: 375 QTc: 597 Interpretive Statements Atrial fibrillation with a rapid ventricular response Occasional premature ventricular or aberrantly conducted supraventricular complexes Left bundle branch block Compared to ECG 06/04/2017 12:37:06 No significant change was found Electronically Signed On 07-09-2017 8:44:13 CDT by James Jimenez [email or web address] <ELECTRONICALLY SIGNED> By: James Jimenez MD, [facility] 07/09/17 0844 58 58 James Jimenez MD, [facility] /EPI
--- NOTE | ~2017-07-08 | 2DMMODE ---
[facility] [address] [place] [address] 2 D/M-MODE ECHOCARDIOGRAM Name: KATERINA BANKS Room #: 213-P ADM IN [facility].#: [id number] Admission: 07/08/17 Attend Phys: David Coulter MD Discharge: Date of : 38 Date of Service: 07/09/17 1053 Report #: [id number] THIS REPORT FOR: //name// APPROVED REPORT Study performed: 07/09/2017 09:27:16 EXAM: Comprehensive 2D, Doppler, and color-flow Echocardiogram Patient Location: Bedside Room #: 213 Status: routine BSA: 1.81 HR: 60 bpm BP: 130/68 mmHg Other Information Study Quality: Good Indications Congestive Heart Failure COPD Atrial Fibrillation Pacemaker CAD Hypertension/HDD History of Aortic root disection with repair. 2D Dimensions RVDd: 45.38 mm Ascending Ao: 41.88 (22-36mm) Aortic Root: 41.71 mm IVC: 25.00 mm Tricuspid Valve TR Peak Randy.: 3.36 m/s RAP Estimate: 10.00 mmHg TR Peak Gr.: 45.27 mmHg PA Pressure: 55.00 mmHg Left Ventricle Left ventricle is dilated. There is normal left ventricular wall thickness. Left ventricular ejection fraction is severely decreased. LVEF is 20-25%. Right Ventricle Right ventricle is dilated. Right ventricle is hypokinetic. Pacemaker lead is present in the right ventricle. [facility] [address] [place] [place] [address] 2 D/M-MODE ECHOCARDIOGRAM Name: KATERINA BANKS Room #: 213-P ADM IN ..#: [id number] Admission: 07/08/17 Attend Phys: David Coulter MD Discharge: Date of : 38 Date of Service: 07/09/17 1053 Report #: [id number] Atria Left atrium is dilated. Right atrium is dilated. Pacemaker lead is present in the right atrium. Aortic Valve The aortic valve is normal in structure. Aortic valve is calcified. Mild to moderate aortic regurgitation. Mitral Valve The mitral valve is normal in structure. severe mitral regurgitation with eccentric jet Tricuspid Valve The tricuspid valve is normal in structure. There is mild to moderate tricuspid regurgitation. The right atrial pressure is estimated at 10 mmHg. There is moderate pulmonary hypertension. Great Vessels Aortic root is dilated. Ascending aorta is dilated. The inferior vena cava is dilated with a decrease in inspiratory collapse. Pericardium There is no pericardial effusion. <Conclusion> Left ventricle is dilated. Left ventricular ejection fraction is severely decreased. LVEF is 20-25%. Right ventricle is dilated. Left atrium is dilated. Pacemaker lead is present in the right ventricle. Right atrium is dilated. Pacemaker lead is present in the right atrium. The aortic valve is normal in structure. Aortic valve is calcified. Mild to moderate aortic regurgitation. The mitral valve is normal in structure. severe mitral regurgitation with eccentric jet The tricuspid valve is normal in structure. There is mild to moderate tricuspid regurgitation. The right atrial pressure is estimated at 10 mmHg. There is moderate pulmonary hypertension. [facility] [address] [place] [address] 2 D/M-MODE ECHOCARDIOGRAM Name: KATERINA BANKS Room #: 213-P ADM IN .R.#: [id number] Admission: 07/08/17 Attend Phys: David Coulter MD Discharge: Date of : 38 Date of Service: 07/09/17 1053 Report #: [id number] Aortic root is dilated. Ascending aorta is dilated. <ELECTRONICALLY SIGNED> By: Jt Haines MD 07/09/17 1053 52 52 Jt Haines MD /INF
--- NOTE | ~2017-07-08 | EKG ---
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 : 1940 Requested By: Tono Bender Order Number: [id number] MD: James Jimenez Measurements Intervals [place] Rate: 60 P: 0 NM: 74 QRS: 51 QRSD: 143 T: 203 QT: 505 QTc: 505 Interpretive Statements Sinus rhythm Nonspecific intraventricular conduction delay Poor R wave progression Compared to ECG 06/04/2017 12:37:06 sinus rhythm has replaced atrial fibrillation Left bundle branch block is no longer present Electronically Signed On 07-09-2017 8:49:29 CDT by James Jimenez [email or web address] <ELECTRONICALLY SIGNED> By: James Jimenez MD, [facility] 07/09/17 0849 0603 2 James Jimenez MD, [facility] /EPI
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
--- NOTE | ~2017-07-08 | EKG ---
[place] [address] [facility] [employer] 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 : 1940 Requested By: Carl Yu Order Number: [id number] MD: James Jimenez Measurements Intervals [place] Rate: 125 P: 0 SC: 153 QRS: 28 QRSD: 152 T: 218 QT: 361 QTc: 521 Interpretive Statements Atrial fibrillation Left bundle branch block Baseline wander in lead(s) V1 Compared to ECG 06/04/2017 12:37:06 Ventricular pacing no longer present Electronically Signed On 07-09-2017 8:43:40 CDT by James Jimenez [email or web address] <ELECTRONICALLY SIGNED> By: James Jimenez MD, [facility] 07/09/17 0843 1928 27 James Jimenez MD, [facility] /EPI
[~2017-07-08 19:20] MED LIST changes: +LASIX 40 MG TAB40 MG PO
[2017-07-08 20:07] LABS: HEMATOCRIT 46.4 % (37.0-47.0); HEMOGLOBIN 15.6 gm/dL (12.0-15.0); MCH 32.1 pg (26.0-34.0); MCHC 33.7 g/dL (28.0-37.0); MCV 95.3 fL (80.0-100.0); RBC 4.86 mil/uL (4.20-5.00); RDW 15.1 % (10.5-14.5)
[2017-07-08 20:12] LABS: ANION GAP 11 mmol/L (7-16); BUN 31 mg/dL (7-18); CALCIUM 8.5 mg/dL (8.5-10.1); CHLORIDE 106 mmol/L (98-107); CO2 26 mmol/L (21-32); CREATININE 1.1 mg/dL (0.6-1.0); GLUCOSE 154 mg/dL (74-106); POTASSIUM 3.9 mmol/L (3.5-5.1); SODIUM 143 mmol/L (136-145)
[2017-07-08 20:21] LABS: MAGNESIUM 1.8 mg/dL (1.8-2.4); TROPONIN-I < 0.04 ng/mL (<0.04-0.07)
[2017-07-08 22:13] VITALS: BP 135/66
[2017-07-08 22:40] VITALS: BP 126/60
[2017-07-08 23:21] VITALS: BP 127/66
[2017-07-08] MEDS ORDERED: TOPROL XL25 MG PO (23:45)
[2017-07-08] MEDS ORDERED: PACERONE 200 M200 M1 PO (23:46)
[2017-07-08] MEDS ORDERED: TYLENOL EXTRA500 MG PO (23:47)
[2017-07-08] MEDS ORDERED: VALIUM5 MG PO (23:52)
[2017-07-09 03:33] VITALS: BP 130/68
[2017-07-09 04:23] LABS: HEMATOCRIT 41.7 % (37.0-47.0); HEMOGLOBIN 14.2 gm/dL (12.0-15.0); MCH 32.2 pg (26.0-34.0); MCV 94.7 fL (80.0-100.0); RBC 4.4 mil/uL (4.20-5.00); RDW 14.9 % (10.5-14.5); WBC 5.1 thou/uL (4.0-11.0)
[2017-07-09 04:27] LABS: CALCIUM 8.5 mg/dL (8.5-10.1); POTASSIUM 3.4 mmol/L (3.5-5.1)
[2017-07-09 08:05] VITALS: BP 146/61
[2017-07-09 12:20] VITALS: BP 137/62
[2017-07-09] MEDS ORDERED: LOPRESSOR50 PO (12:33)
[2017-07-09 13:33] VITALS: BP 146/61
[2017-07-10 03:16] LABS: GLYCOHEMOGLOBIN (HGB A1C) 5.5 % (4.8-5.6)
== END 2017-07-09 15:15 | disposition home or self-care (01) | DRG 309 ==
LOC: ER 19:20 → 2N 21:49 → EROBS 21:49 → 2N 22:50 → ENTRNSPT 07-09 13:59 → EDTRNSPTSTS 07-09 14:01 → 2N 07-09 15:15
PROVIDERS: Emergency Medicine; Nurse Practitioner Family
DX: I48.91 Unspecified atrial fibrillation (principal); I50.22 Chronic systolic (congestive) heart failure; E78.00 Pure hypercholesterolemia, unspecified; F41.9 Anxiety disorder, unspecified; G47.33 Obstructive sleep apnea (adult) (pediatric); I42.9 Cardiomyopathy, unspecified; I11.0 Hypertensive heart disease with heart failure; J44.9 Chronic obstructive pulmonary disease, unspecified; E03.9 Hypothyroidism, unspecified; I25.10 Atherosclerotic heart disease of native coronary artery without angina pectoris; I50.9 Heart failure, unspecified; I25.2 Old myocardial infarction; Z95.0 Presence of cardiac pacemaker; Z86.73 Personal history of transient ischemic attack (TIA), and cerebral infarction without residual deficits; Z88.6 Allergy status to analgesic agent; Z88.1 Allergy status to other antibiotic agents; Z88.8 Allergy status to other drugs, medicaments and biological substances; Z90.710 Acquired absence of both cervix and uterus; Z88.0 Allergy status to penicillin; Z87.891 Personal history of nicotine dependence; Z82.49 Family history of ischemic heart disease and other diseases of the circulatory system
CPT/HCPCS: 10081

== ENCOUNTER → 2018-02-09 | Outpatient (CLI) | payer OTHER ==
[~2018-02-09] MED LIST changes: +LOPRESSOR50 PO; +PACERONE 200 M200 M1 PO; +TOPROL XL25 MG PO; +TYLENOL EXTRA500 MG PO; +VALIUM5 MG PO
--- NOTE | ~2018-02-09 | 2DMMODE ---
[facility] [place] [address] 2 D/M-MODE ECHOCARDIOGRAM Name: KATERINA BANKS Room #: REG [facility]#: [id number] Admission: 02/09/18 Attend Phys: John Jacobson Discharge: Date of : 36 Date of Service: 02/09/18 1204 Report #: [id number] THIS REPORT FOR: //name// APPROVED REPORT Study performed: 02/09/2018 10:18:21 EXAM: Comprehensive 2D, Doppler, and color-flow Echocardiogram Patient Location: Out-Patient Status: routine BSA: 1.81 HR: 60 bpm BP: 127/77 mmHg Rhythm: Pacemaker Other Information Study Quality: Good Indications Cardiomyopathy Hx: AFIB, COPD, CHF, Pacemaker, CAD, AoR dissection with repair 2D Dimensions LVEF(%): 17.63 (>50%) IVSd: 8.42 (7-11mm) LVOT Diam: 19.93 (18-24mm) LVDd: 60.22 mm PWd: 8.36 (7-11mm) Ascending Ao: 45.01 (22-36mm) LVDs: 55.34 (25-40mm) Aortic Root: 39.89 mm IVC: 14.00 mm TAPSE: 2.10 (<1.7) Carr's LVEF: 17.63 % Volumes Left Atrial Volume (Systole) Single Plane 4CH: 124.05 mL Single Plane 2CH: 160.49 mL LA ESV Index: 84.00 mL/m2 Aortic Valve AoV Peak Randy.: 2.46 m/s AO Peak Gr.: 24.25 mmHg LVOT Max P.85 mmHg AO Mean Gr.: 10.81 mmHg AO V2 Mean: 1.51 m/s LVOT Max V: 0.84 m/s AO V2 VTI: 45.06 cm DAVID Vmax: 1.07 cm2 [facility] [place] [address] 2 D/M-MODE ECHOCARDIOGRAM Name: KATERINA BANKS Room #: REG [facility]#: [id number] Admission: 02/09/18 Attend Phys: John Jacobson Discharge: Date of : 36 Date of Service: 02/09/18 1204 Report #: [id number] AI Vmax: 4.27 m/s AI Barbour: 2.66 m/s2 AI PHT: 465.96 ms Pulmonary Valve PV Peak Randy.: 0.66 m/s PV Peak Gr.: 1.76 mmHg Tricuspid Valve TR Peak Randy.: 3.40 m/s RAP Estimate: 5.00 mmHg TR Peak Gr.: 46.13 mmHg PA Pressure: 51.00 mmHg Left Ventricle The left ventricle is normal size. There is normal left ventricular wall thickness. Left ventricular ejection fraction is moderately decreased. LVEF is 30-35%. This study is not technically sufficient to allow evaluation of the LV diastolic function. Right Ventricle Right ventricle is dilated. Right ventricle is mild hypokinetic. Pacemaker lead is present in the right ventricle. Atria Left atrium is severely dilated. Right atrium is dilated. Pacemaker lead is present in the right atrium. Aortic Valve Aortic valve is thickened and calcified. Moderate aortic regurgitation. There is moderate valvular aortic stenosis. Calculated aortic valve area is 1.2 cm2 with maximum pressure gradient of 24.3 mmHg and mean pressure gradient of 11 mmHg. Mitral Valve There is mitral annular calcification. Moderate mitral regurgitation. No evidence of mitral valve stenosis. Tricuspid Valve The tricuspid valve is normal in structure. Moderate tricuspid regurgitation. Estimated PAP 51 mmHg. Pulmonic Valve The pulmonary valve is normal in structure. Trace pulmonic regurgitation. Great Vessels Aortic root is dilated at 4 cm. The ascending aorta is dilated at 4.[address] [address] 2 D/M-MODE ECHOCARDIOGRAM Name: KATERINA BANKS Room #: REG [facility]#: [id number] Admission: 02/09/18 Attend Phys: John Jacobson Discharge: Date of : 36 Date of Service: 02/09/18 1204 Report #: [id number]. IVC is normal in size and collapses >50% with inspiration. Pericardium There is no pericardial effusion. <Conclusion> The left ventricle is normal size. Left ventricular ejection fraction is moderately decreased. LVEF is 30-35%. Right ventricle is dilated. Right ventricle is mild hypokinetic. Pacemaker lead is present in the right ventricle. Left atrium is severely dilated. Right atrium is dilated. Pacemaker lead is present in the right atrium. Aortic valve is thickened and calcified. Moderate aortic regurgitation. There is moderate valvular aortic stenosis. Calculated aortic valve area is 1.2 cm2 with maximum pressure gradient of 24.3 mmHg and mean pressure gradient of 11 mmHg. There is mitral annular calcification. Moderate mitral regurgitation. The tricuspid valve is normal in structure. Moderate tricuspid regurgitation. Estimated PAP 51 mmHg. The pulmonary valve is normal in structure. Trace pulmonic regurgitation. The ascending aorta is dilated at 4.5 cm. Aortic root is dilated at 4 cm. There is no pericardial effusion. <ELECTRONICALLY SIGNED> By: Jt Haines MD 02/09/18 1204 1204 120 Jt Haines MD /INF
== END ==
LOC: CV 10:05
DX: I48.91 Unspecified atrial fibrillation (principal); J44.9 Chronic obstructive pulmonary disease, unspecified; I08.3 Combined rheumatic disorders of mitral, aortic and tricuspid valves; I50.9 Heart failure, unspecified; I25.10 Atherosclerotic heart disease of native coronary artery without angina pectoris; Z95.0 Presence of cardiac pacemaker

== ENCOUNTER 2018-02-16 08:46 | Inpatient (IN) | payer OTHER ==
[~2018-02-16] VITALS: Ht 165.1 cm; Wt 72.7 kg
--- NOTE | ~2018-02-16 | D ---
[facility] [place] [address] DISCHARGE SUMMARY Name: KATERINA BANKS Room #: 208-P ADM IN M.R.#: [id number] Admission: 02/16/18 Attend Phys: John Jacobson MD Discharge: Date of : 38 Report #: [id number] THIS REPORT FOR: //name// CC: David Jacobson DATE OF SERVICE: 02/18/2018 DISCHARGE DIAGNOSES: 1. Ischemic cardiomyopathy. 2. Congestive heart failure. PROCEDURES PERFORMED: Upgrade to an ICD. HISTORY OF PRESENT ILLNESS: The patient is a 77-year-old with history of a mixed cardiomyopathy, both ischemic and nonischemic with history of AFib, status post pacemaker implantation for sick sinus syndrome, whose EF has not improved despite optimal medical therapy and is here for upgrade to an ICD. The procedure was successful with no intraprocedure complications. HOSPITAL COURSE: The patient was monitored overnight. The following day, her device was checked and found to be functioning normally. Her chest x-ray showed stable lead position. On the postop day #1, the patient was feeling fatigued, weak, short of breath and was in pain from her prior surgery. As such, we tried mobilizing her to see if she could go home, but she was not ready. Therefore, we kept an additional day. The following day, she was much improved. Energy level was improved. Her pain was under control and she was able to take p.o. without issues. As such, she was deemed stable for discharge home. Discharge instructions were reviewed. She will go home on the same medications she came in on. She will resume her Xarelto on Wednesday. Home health was set up for her to go home with. <ELECTRONICALLY SIGNED> By: John Jacobson MD 02/18/18 1406 0842 1042 John Jacobson MD /nt
--- NOTE | ~2018-02-16 | EKG ---
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 : 1940 Requested By: John Jacobson Order Number: [id number] MD: James Jimenez Measurements Intervals [place] Rate: 61 P: 54 [place]: 287 QRS: 82 QRSD: 152 T: 244 QT: 507 QTc: 511 Interpretive Statements Sinus rhythm Prolonged [place] interval with atrial pacing Incomplete left bundle branch block Compared to ECG 07/09/2017 06:03:17 No significant change was found Electronically Signed On 02-18-2018 8:34:25 CDT by James Jimenez [email or web address] <ELECTRONICALLY SIGNED> By: James Jimenez MD, [facility] 02/18/18 0834 0630 James Jimenez MD, [facility] /EPI
--- NOTE | ~2018-02-16 | P ---
[facility] [place] [address] PROCEDURE REPORT Name: KATERINA BANKS Room #: 208-P [facility] IN M.R.#: [id number] Admission: 02/16/18 Attend Phys: John Jacobson MD Discharge: Date of : 38 Report #: [id number] THIS REPORT FOR: //name// CC: David Jacobson DATE OF SERVICE: 02/16/2018 PROCEDURE: ICD upgrade. HISTORY: The patient is a 77-year-old female with a history of sick sinus syndrome, coronary artery disease as well as mixed ischemic and nonischemic cardiomyopathy with an EF of less than 35%, on optimal medical therapy for over 3 months and [place] Heart Association functional class 2-3 heart failure symptoms. She is here for upgrade from a dual chamber pacemaker to an ICD. ANESTHESIA: The patient with MAC anesthesia with no anesthesia-related complications. DESCRIPTION OF PROCEDURE: The patient underwent informed consent. We discussed the details of the procedure including the risks, which include but not limited to bleeding, infection, vascular damage, cardiac perforation and pneumothorax. She understood these risks and was willing to proceed. She was brought to the EP laboratory in a fasting and sedated state and prepped and draped in a sterile fashion. The patient underwent a venogram given her prior pacemaker implantation to rule out a subclavian stenosis. The venogram did show a possible stenosis at the prior lead insertion site right over the first rib. There was evidence of collateralization around the stenosis. I performed several venograms to look at the collaterals and see if there was a potential site to place the lead proximal to the stenosis. The patient was prepped and draped in a sterile fashion. I then attempted to obtain access via subclavian approach. I was not able to obtain access via the skin via subclavian approach. I therefore tried to obtain access just distal to the area of stenosis. I was able to get venous return. I attempted to advance a J wire, but this was unsuccessful. I therefore injected IV contrast via the needle, which showed that there was a stenosis, but there was some contrast that appeared to be flowing in the right direction. Therefore, I used a Wholey wire and was able to bypass the area of stenosis. There was a small channel that the wire did go down. As such, I advanced the wire down into the heart and then I injected lidocaine at the prior incision site. Incision was made and the pocket was opened. I then pulled the wire into the pocket and placed the sheath using the modified Seldinger technique. I then placed a single coil ICD lead into the right ventricular apex with adequate pacing and sensing thresholds. This lead was sutured to the prepectoral fascia. I then removed the pacemaker from the pocket and expanded the pocket for the ICD. Then, I capped the RV lead and [facility] [address] [place] [address] PROCEDURE REPORT Name: KATERINA BANKS Room #: 208-P [facility] IN .R.#: [id number] Admission: 02/16/18 Attend Phys: John Jacobson MD Discharge: Date of : 38 Report #: [id number] connected the atrial and ventricular leads to the new defibrillator. The pocket was irrigated with vancomycin and then I closed the pocket in 3 layers using 2-0 for the deep layer, 3-0 for the mid layer and 4-0 for the subcuticular. Surgical glue was placed to the outer skin layer. The patient awoke neurologically and hemodynamically intact with no complications and no significant bleeding. The explanted pacemaker was a [employer] model # [id number], serial #[id number], implanted on 03/17/2017. The newly implanted generator was a [employer] model #[id number], serial #[id number]. The atrial lead was [employer] model #2088TC 52 cm, serial #[id number]. This lead demonstrated a P-wave of 1.7 millivolts, pacing impedance of 490 ohms, pacing threshold of 0.8 volts at 0.4 milliseconds. The newly implanted ICD lead was a [employer] model #7122Q 58 cm, serial #[id number]. This lead demonstrated R-wave of 12.9 millivolts, pacing impedance of 445 ohms, pacing threshold 0.5 volts at 0.5 milliseconds. The old pacemaker RV lead was a [employer] model #2088TC 58 cm, serial #[id number]. This lead was capped. This was placed in the pocket. The device was programmed to the DDDR 60-110 mode. The VT zone was set at 180-220 beats per minute with ATP while charging followed by max output shocks. The VF zone was set at greater than 220 beats per minute with ATP while charging followed by max output shocks. CONCLUSIONS: 1. Successful upgrade to a dual chamber ICD. 2. Satisfactory atrial and right ventricular pacing and sensing thresholds. <ELECTRONICALLY SIGNED> By: John Jacobson MD 02/18/18 1406 1227 1324 John Jacobson MD /nt
[~2018-02-16 08:46] MED LIST changes: +SYNTHROID50 MCG PO
[2018-02-16] MEDS ORDERED: CO Q1060 MG PO (09:08)
[2018-02-16 09:27] VITALS: BP 139/64
[2018-02-16 09:29] LABS: ABSOLUTE NEUTROPHILS 4.2 thou/uL (1.4-8.2); BASOPHILS 0.6 % (0.0-2.0); EOSINOPHILS 3.5 % (0.0-3.0); HEMATOCRIT 47.1 % (37.0-47.0); HEMOGLOBIN 15.9 gm/dL (12.0-15.0); LYMPHOCYTES 23.9 % (24.0-44.0); MCHC 33.7 g/dL (28.0-37.0); MONOCYTES 10.2 % (1.0-8.0); PLATELET COUNT 180 thou/uL (150-400); POLYS 61.8 % (36.0-66.0); RBC 4.81 mil/uL (4.20-5.00); RDW 15.3 % (10.5-14.5); WBC 6.7 thou/uL (4.0-11.0)
[2018-02-16 09:38] LABS: CALCIUM 9.2 mg/dL (8.5-10.1); CREATININE 1.5 mg/dL (0.6-1.0); POTASSIUM 3.6 mmol/L (3.5-5.1)
[2018-02-16 09:41] LABS: APTT 31.1 Seconds (24.5-32.8); INR 1.1; PROTIME 11.2 Seconds (9.3-11.4)
[2018-02-16 09:44] LABS: TOTAL BILIRUBIN 0.6 mg/dL (<0.1-1.0); TOTAL PROTEIN 8.3 g/dL (6.4-8.2)
[2018-02-16] MEDS ORDERED: LOPRESSOR100 M1 PO (18:27)
[2018-02-16] MEDS ORDERED: PAXIL10 MG (18:27)
[2018-02-16 20:39] VITALS: BP 134/62
[2018-02-17] VITALS (7 sets, daily range): BP systolic 116–152; BP diastolic 59–81
[2018-02-18 00:25] VITALS: BP 131/66
[2018-02-18 04:13] LABS: HEMATOCRIT 39.4 % (37.0-47.0); MCH 32.8 pg (26.0-34.0); MCHC 33.9 g/dL (28.0-37.0); MCV 96.8 fL (80.0-100.0); PLATELET COUNT 122 thou/uL (150-400); RBC 4.07 mil/uL (4.20-5.00); RDW 14.9 % (10.5-14.5); WBC 6.7 thou/uL (4.0-11.0)
[2018-02-18 04:15] LABS: HEMOGLOBIN 13.3 gm/dL (12.0-15.0)
[2018-02-18 04:22] LABS: CALCIUM 8.5 mg/dL (8.5-10.1); POTASSIUM 3.3 mmol/L (3.5-5.1)
[2018-02-18 04:28] VITALS: BP 122/57
[2018-02-18 04:53] LABS: LARGE PLATELETS OCCASIONAL
[2018-02-18 08:00] VITALS: BP 116/52
[2018-02-18 14:04] VITALS: BP 116/61
== END 2018-02-18 16:00 | disposition home health service (06) | DRG 243 ==
LOC: CATH 08:46 → 2N 08:56 → CATH 12:01 → ENTRNSPT 02-18 14:29 → EDTRNSPTSTS 02-18 14:32 → 2N 02-18 16:00
PROVIDERS: Internal Medicine Cardiovascular Disease
PROC: 3E0102A Introduction of Anti-Infective Envelope into Subcutaneous Tissue, Open Approach (ICD-10-PCS; principal; 2018-02-16)
PROC: 02HK3JZ Insertion of Pacemaker Lead into Right Ventricle, Percutaneous Approach (ICD-10-PCS; principal; 2018-02-16)
PROC: 0JPT0PZ Removal of Cardiac Rhythm Related Device from Trunk Subcutaneous Tissue and Fascia, Open Approach (ICD-10-PCS; principal; 2018-02-16)
PROC: 02H63JZ Insertion of Pacemaker Lead into Right Atrium, Percutaneous Approach (ICD-10-PCS; principal; 2018-02-16)
PROC: 0JH606Z Insertion of Pacemaker, Dual Chamber into Chest Subcutaneous Tissue and Fascia, Open Approach (ICD-10-PCS; principal; 2018-02-16)
DX: I25.5 Ischemic cardiomyopathy (principal); I50.22 Chronic systolic (congestive) heart failure; I50.9 Heart failure, unspecified; I48.91 Unspecified atrial fibrillation

== ENCOUNTER 2018-03-11 07:47 | Inpatient (IN) | payer OTHER ==
[2018-03-11] VITALS (22 sets, daily range): BP systolic 89–136; BP diastolic 48–84
[~2018-03-11] VITALS: Ht 162.6 cm; Wt 74.2 kg
--- NOTE | ~2018-03-11 | HC ---
[facility] [address] CONSULTATION Name: KATERINA BANKS Room #: 214-P ADM IN M.R.#: [id number] Admission: 03/11/18 Attend Phys: John Jacobson MD Discharge: Date of : 38 Report #: [id number] THIS REPORT FOR: //name// CC: David Jacobson REASON FOR CONSULTATION: Acute kidney injury. REASON FOR PRESENTATION: Post-cardioversion. HISTORY OF PRESENT ILLNESS: A 77-year-old with past medical history of cardiomyopathy, AFib. She had a cardioversion back on 02/25/2018 for ventricular tachycardia and AFib. She came to the hospital not feeling well. She was having some shortness of breath. No reported nausea or vomiting. <ELECTRONICALLY SIGNED> By: Madai Farris MD 03/16/18 0817 0916 1208 Madai Farris MD /nt
--- NOTE | ~2018-03-11 | EKG ---
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
--- NOTE | ~2018-03-11 | EKG ---
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: : 1940 Requested By: Carl Yu Order Number: [id number] MD: Pritesh Mcdowell Measurements Intervals [place] Rate: 123 P: 0 [place]: QRS: -34 QRSD: 180 T: 140 QT: 433 QTc: 620 Interpretive Statements Sinus tachycardia Left bundle branch block Compared to ECG 02/18/2018 06:30:14 Sinus rhythm no longer present First degree AV block no longer present Atrial-paced complex(es) or rhythm no longer present Electronically Signed On 03-11-2018 9:17:29 CDT by Pritesh Mcdowell [email or web address] <ELECTRONICALLY SIGNED> By: Pritesh Mcdowell MD 03/11/18916 0 0 Pritesh Mcdowell MD /BENJAMIN
--- NOTE | ~2018-03-11 | EKG ---
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
--- NOTE | ~2018-03-11 | 2DMMODE ---
[address] [facility] [place] [address] 2 D/M-MODE ECHOCARDIOGRAM Name: KATERINA BANKS Room #: 214-P ADM IN ..#: [id number] Admission: 03/11/18 Attend Phys: John Jacobson Discharge: Date of : 36 Date of Service: 03/14/18 1258 Report #: [id number] THIS REPORT FOR: //name// APPROVED REPORT Study performed: 03/14/2018 11:37:35 EXAM: Comprehensive 2D, Doppler, and color-flow Echocardiogram Patient Location: Bedside Room #: 214 Status: routine BSA: 1.81 HR: 60 bpm Other Information Study Quality: Good Indications ICD: Ventricular tachycardia 2D Dimensions LVEF(%): 23.17 (>50%) IVSd: 6.78 (7-11mm) LVDd: 62.29 mm PWd: 8.05 (7-11mm) Ascending Ao: 42.07 (22-36mm) LVDs: 55.51 (25-40mm) Aortic Root: 40.80 mm IVC: 27.00 mm Carr's LVEF: 23.17 % Tricuspid Valve TR Peak Randy.: 2.94 m/s TR Peak Gr.: 34.46 mmHg PA Pressure: 49.00 mmHg Left Ventricle Left ventricle is dilated. There is normal left ventricular wall thickness. Left ventricular ejection fraction is severely decreased. LVEF is 20-25%. This study is not technically sufficient to allow evaluation of the LV diastolic function. Right Ventricle Right ventricle is at the upper limits of normal. Right ventricular systolic function is grossly normal. Device lead is present in the [address] [place] [address] 2 D/M-MODE ECHOCARDIOGRAM Name: KATERINA BANKS Room #: 214-P ADM IN .R.#: [id number] Admission: 03/11/18 Attend Phys: John Jacobson Discharge: Date of : 38 Date of Service: 03/14/18 1258 Report #: [id number] right ventricle. Atria Left atrium is dilated. Right atrium is dilated. Device lead is present in the right atrium. Aortic Valve The aortic valve is normal in structure. Aortic valve is calcified. Mild aortic regurgitation. There is no aortic valvular stenosis. Mitral Valve The mitral valve is normal in structure. Mild to moderate mitral regurgitation. No evidence of mitral valve stenosis. Tricuspid Valve The tricuspid valve is normal in structure. There is mild to moderate tricuspid regurgitation. Estimated PAP 49 mmHg. There is moderate pulmonary hypertension. Pulmonic Valve The pulmonary valve is normal in structure. There is no pulmonic valvular regurgitation. Great Vessels The aortic root is normal in size. The inferior vena cava is dilated with no inspiratory collapse. Pericardium There is no pericardial effusion. <Conclusion> Left ventricle is dilated. LVEF is 20-25%. Device lead is present in the right ventricle. Left atrium is dilated. Right atrium is dilated. Device lead is present in the right atrium. The aortic valve is normal in structure. Aortic valve is calcified. Mild aortic regurgitation. There is no aortic valvular stenosis. The mitral valve is normal in structure. Mild to moderate mitral regurgitation. The tricuspid valve is normal in structure. There is mild to moderate tricuspid regurgitation. Estimated PAP [address] [place] [address] 2 D/M-MODE ECHOCARDIOGRAM Name: KATERINA BANKS Room #: 214-P ADM IN M.R.#: [id number] Admission: 03/11/18 Attend Phys: John Jacobson Discharge: Date of : 36 Date of Service: 03/14/181257 Report #: [id number] mmHg. There is moderate pulmonary hypertension. The pulmonary valve is normal in structure. The aortic root is normal in size. There is no pericardial effusion. <ELECTRONICALLY SIGNED> By: Jt Haines MD 03/14/188 57 57 Jt Haines MD /INF
--- NOTE | ~2018-03-11 | P ---
[facility] [place] [address] PROCEDURE REPORT Name: KATERINA BANKS Room #: 214-P ADM IN M.R.#: [id number] Admission: 03/11/18 Attend Phys: John Jacobson MD Discharge: Date of : 38 Report #: [id number] THIS REPORT FOR: //name// CC: David Jacobson PROCEDURE: Cardioversion. PREOPERATIVE DIAGNOSIS: Supraventricular tachycardia. POSTOPERATIVE DIAGNOSIS: Supraventricular tachycardia. DESCRIPTION OF PROCEDURE: The patient underwent informed consent and then was sedated by the Anesthesiology Service and then underwent a successful 150 joule synchronized cardioversion with episcopal of sinus rhythm. CONCLUSION: Successful DC cardioversion. <ELECTRONICALLY SIGNED> By: John Jacobson MD 03/17/18 1110 1059 1155 John Jacobson MD /nt
--- NOTE | ~2018-03-11 | EKG ---
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 : 1940 Requested By: Samantha Gonzalez Order Number: [id number] MD: James Jimenez Measurements Intervals [place] Rate: 110 P: 67 [place]: 160 QRS: 0 QRSD: 183 T: 134 QT: 478 QTc: 647 Interpretive Statements Wide-complex tachycardia, possibly ventricular tachycardia Left bundle branch block Baseline wander in lead(s) V3,V4 Compared to ECG 03/11/2018 14:05:39 Ventricular-paced complex(es) or rhythm no longer present Electronically Signed On 03-14-2018 16:58:04 CDT by James Jimenez [email or web address] <ELECTRONICALLY SIGNED> By: James Jimenez MD, [facility] 03/14/18 1658 0056 0056 James Jimenez MD, [facility] /EPI
--- NOTE | ~2018-03-11 | HC ---
[facility] [place] [address] CONSULTATION Name: KATERINA BANKS Room #: 214-P ADM IN M.R.#: [id number] Admission: 03/11/18 Attend Phys: John Jacobson MD Discharge: Date of : 38 Report #: [id number] THIS REPORT FOR: //name// CC: David Jacobson REASON FOR CONSULTATION: Acute kidney injury. REASON FOR PRESENTATION: Weakness and shortness of breath. HISTORY OF PRESENT ILLNESS: A 77-year-old with known heart rhythm issues including V-tach and Aflutter. She has an ICD pacemaker placed back in 2016. She also had history of cardioversion in the past. She presented complaining of generalized weakness associated with some shortness of breath. She was admitted for further evaluation and management. She is known to have hypertension, hyperlipidemia, AFib/flutter, aortic dissection with repair. She also has a pacemaker placement back in February 2017 with an ejection fraction of 30%. No known chronic kidney disease. On presentation to the Emergency Room, she was found to have a creatinine of 1.5. She had a cardioversion procedure, after which she ran into some issues with hypotension. Creatinine has gone up to 1.8 while taking Lasix and ARB. I am being consulted to manage her acute kidney injury. PAST MEDICAL HISTORY: 1. Hypertension. 2. Hyperlipidemia. 3. Status post hysterectomy. 4. AFib/flutter. 5. Heart failure with ejection fraction of 30%. 6. Aortic dissection post repair. 7. Lumpectomy of left breast cancer. 8. Obstructive sleep apnea. MEDICATIONS: 1. Levothyroxine. 2. Amiodarone. 3. Valsartan. 4. Potassium. 5. Crestor. ALLERGIES: NUMEROUS INCLUDING ATENOLOL, CLONIDINE, CEPHALEXIN, IBUPROFEN BESIDES THE OTHERS THAT ARE LISTED. SOCIAL HISTORY: She denies drug or alcohol abuse. She lives with her . REVIEW OF SYSTEMS: GENERAL: Significant for weakness and fatigue. [facility] [address] [place] [address] CONSULTATION Name: KATERINA BANKS Room #: 214-[facility] IN .R.#: [id number] Admission: 03/11/18 Attend Phys: John Jacobson MD Discharge: Date of : 38 Report #: [id number] CARDIOVASCULAR: Significant for shortness of breath. PULMONARY: No cough or hemoptysis. GASTROINTESTINAL: No nausea or vomiting. GENITOURINARY: No frequency, no urgency. MUSCULOSKELETAL: Occasional back pain. PHYSICAL EXAMINATION: GENERAL: Alert, oriented, in no apparent distress. VITAL SIGNS: Blood pressure is 110/58. HEAD AND NECK: No jugular venous distention, no bruit, no thyromegaly. CHEST: Clear to auscultation bilaterally. CARDIOVASCULAR: Regular with no rub detected. ABDOMEN: Soft, nontender with no hepatosplenomegaly. EXTREMITIES: Lower extremities, no edema with intact peripheral pulses. LABORATORY DATA: Reviewed. Creatinine is up to 1.8 from . Troponin is negative. IMAGING: Chest x-ray reviewed, no evidence of acute infiltrate. ASSESSMENT, IMPRESSION AND PLAN: 1. Acute kidney injury. 2. Status post cardioversion. 3. Cardiomyopathy. 4. Status post pacemaker insertion. 5. Her acute kidney injury is due to volume depletion. 6. Agree with gentle IV hydration. 7. Discontinue Lasix. 8. Discontinue losartan. 9. Strict input and output. 10. We will continue to follow along. <ELECTRONICALLY SIGNED> By: Madai Farris MD 03/16/18 0817 0920 1226 Madai Farris MD /nt
--- NOTE | ~2018-03-11 | P ---
[facility] [place] [address] PROCEDURE REPORT Name: KATERINA BANKS Room #: 214-P [facility] IN M.R.#: [id number] Admission: 03/11/18 Attend Phys: John Jacobson MD Discharge: Date of : 38 Report #: [id number] THIS REPORT FOR: //name// CC: David Jacobson DATE OF SERVICE: 03/11/2018 PROCEDURE: cardioversion. PREOPERATIVE DIAGNOSIS: Ventricular tachycardia. POSTOPERATIVE DIAGNOSIS: Ventricular tachycardia. HISTORY: The patient underwent cardioversion earlier this morning and then was found to be out of rhythm again while recovering from sedation by the Anesthesiology service. I interrogated her device and it demonstrated that she was in ventricular tachycardia with clear AV dissociation noted. It appears that this is likely a left bundle-branch block reentrant VT. I attempted to terminate this with ventricular burst pacing as well as delivering dual and triple ventricular extrastimuli with continuation of the ventricular tachycardia. There are the periods of 1:1 conduction, but then it would demonstrate a clear AV dissociation. PROCEDURE: The patient was sedated by the nursing staff using Versed and fentanyl. We gave her small doses given her advanced age. She was hemodynamically stable throughout her ventricular tachycardia with systolic blood pressures of 120. She then underwent successful 200 joule synchronized cardioversion with latter-day of sinus rhythm. CONCLUSION: Successful cardioversion for stable monomorphic ventricular tachycardia, likely secondary to left bundle-branch block reentrant VT. PLAN: The patient will be admitted to the hospital for IV amiodarone and close monitoring in the ICU. <ELECTRONICALLY SIGNED> By: John Jacobson MD 03/17/18 1110 1102 1220 John Jacobson MD /nt
--- NOTE | ~2018-03-11 | P ---
[facility] [place] [address] PROCEDURE REPORT Name: KATERINA BANKS Room #: 214-P ADM IN M.R.#: [id number] Admission: 03/11/18 Attend Phys: John Jacobson MD Discharge: Date of : 38 Report #: [id number] THIS REPORT FOR: //name// CC: David Jacobson PREOPERATIVE DIAGNOSIS: Wide complex tachycardia. POSTOPERATIVE DIAGNOSES: Supraventricular tachycardia with aberration secondary to atrial tachycardia arising from the right superior pulmonary vein. HISTORY OF PRESENT ILLNESS: The patient is a 77-year-old with a history of paroxysmal atrial fibrillation status post prior pacemaker implantation who subsequently developed a cardiomyopathy and it was recently upgraded to an ICD. She has presented multiple times with recurrent arrhythmias that are 1:1 in nature. She was here on Wednesday with symptomatic tachycardia and required 2 cardioversions within 1 hour for mormon of sinus rhythm. She was admitted and started on higher doses of amiodarone. She was here for EP study looking for either ventricular tachycardia or SVT. DESCRIPTION OF PROCEDURE: 1. Ablation of SVT, CPT code 05681. 2. EP left atrial pacing and recording, CPT code 36347. 3. Intracardiac echo, CPT code 47637. 4. 3D mapping, CPT code 76606. 5. Mapping of tachycardia, CPT code 36024. 6. Transseptal puncture, CPT code 39281. 7. Arterial line placement, CPT code 36850. 8. Pacemaker interrogation and reprogramming x 2. DESCRIPTION OF PROCEDURE: The patient was brought to the EP laboratory after undergoing informed consent. She was prepped and draped in a sterile fashion. Her ICD was reprogrammed to pace in the AAI mode and all ICD therapies were disabled. Next, I obtained access to the bilateral femoral veins placing an 8-Norwegian and two 6-Norwegian short sheaths in the right femoral vein and a 6-Norwegian and 7-Norwegian short sheaths in the left femoral vein. Under fluoroscopy, I placed a decapolar easily in the coronary sinus and 3 quadripolar catheters at the HRA, His and RV positions. A basic EP study was then performed. At baseline, the patient was in sinus rhythm with a sinus cycle length of 935 milliseconds, NC interval 320 milliseconds, QRS duration 140 milliseconds, QT interval of 550 milliseconds, AH interval 122 milliseconds and an HV interval of 80 milliseconds. Next, atrial burst pacing was performed and AV block was noted at 490 milliseconds. Next, single atrial extrastimuli were delivered and the patient went into a 1:1 tachycardia with slightly widening of the QRS morphology. I attempted to entrain this, but this was unsuccessful and there was dissociation of A and V. While we were watching the patient in the spontaneous tachycardia, there were periods of times where there was a more A's [facility] [address] [place] [address] PROCEDURE REPORT Name: KATERINA BANKS Room #: 214-P [facility] IN M.R.#: [id number] Admission: 03/11/18 Attend Phys: John Jacobson MD Discharge: Date of : 38 Report #: [id number] than V's suggestive that this was an atrial tachycardia. I decided to cardiovert this and continue with my EP study. The patient underwent a 100 joules synchronized cardioversion with mormon of sinus rhythm. Next, I performed ventricular burst pacing and VA block was noted at 700 milliseconds. Ventricular ERP was noted at 390 milliseconds at [address] cycle length and 370 milliseconds at [address] cycle length. I performed ventricular stimulation with up to 2 ventricular extrastimuli and I could not induce any ventricular tachycardia. Next, I performed atrial burst pacing and I could easily induce the initial SVT with single atrial extrastimuli. A 3D mapping: Next, I created a detailed 3D geometry of the right atrium and created an activation map of the atrial tachycardia. This appeared to have an area of diffuse earliness along the posterior septal aspect of the high right atrium. This suggested that this was breakthrough from a tachycardia arising from the left side. No ablation was performed on the right side. Next, I performed a transseptal with an SL1 and Carson needle and I placed a Lasso into the left atrium. The patient was systemically heparinized and the transseptal was performed utilizing intracardiac ultrasound. I then created a detailed 3D activation map of the atrial tachycardia in the left atrium. There were periods of time where movement of my Lasso catheter into the right superior pulmonary vein would result in termination. I was also suggested by the activation map that the area of earliest activation was from the right superior pulmonary vein. When I would try to induce the tachycardia with the Lasso in the right superior pulmonary vein, I could not induce it but if I would move it to the left superior pulmonary vein, I could then induce this atrial tachycardia/atrial flutter. As such, I performed a second transseptal using a second SL1 sheath and I was able to advance my guidewire through the prior transseptal site and advance my sheath into the left atrium. I therefore removed my 4 mm ablation catheter that I was going to use for the right-sided ablation and upgraded to a SmartTouch ThermoCool ablation catheter. By this point, the tachycardia had again terminated and whenever I had the Lasso in the right superior pulmonary vein, I could not re-induce it. Therefore, I performed isolation of the right superior pulmonary vein with ThermoCool at 30 baer. There was a small area of conduction that was arising from the anterior bi of the right superior pulmonary vein. I did approximately 1-2 minutes of ablation at this site and there was isolation of the right superior pulmonary vein. There was no evidence of entrance and exit block. Post-ablation findings: Post-ablation, I performed an additional testing. I have continued to try to re-induce the tachycardia delivering single atrial extrastimuli which were previously induced the clinical arrhythmia. On occasion, I would induce another atrial tachycardia that was of a slower cycle length of 600 milliseconds. This one was easily terminated with any atrial pacing whereas the original atrial tachycardia arising from the right superior pulmonary vein would never terminate with atrial pacing and required [facility] [address] [place] [address] PROCEDURE REPORT Name: KATERINA BANKS Room #: 214-P [facility] IN ..#: [id number] Admission: 03/11/18 Attend Phys: John Jacobson MD Discharge: Date of : 38 Report #: [id number] cardioversion. We tested for a period of time and could no longer induce the atrial tachycardia arising from the right superior pulmonary vein. As such, the procedure was concluded. I used intracardiac ultrasound to verify that there was no pericardial effusion. All catheters were pulled to the right atrium. The patient received systemic protamine and once ACT was within acceptable range, all catheters and sheaths were pulled and hemostasis was obtained. Of note, I did perform an arterial line placement in the right femoral artery using a 4-Norwegian sheath. This will be pulled in recovery after the ACT has drifted down further. CONCLUSIONS: 1. Successful ablation of atrial tachycardia arising from the right superior pulmonary vein with evidence of isolation of the right superior pulmonary vein. 2. No evidence of inducible ventricular tachycardia. 3. Normal ICD function post-ablation. <ELECTRONICALLY SIGNED> By: John Jacobson MD 03/17/18 1110 1331 0245 John Jacobson MD /nt
--- NOTE | ~2018-03-11 | P ---
[facility] [place] [address] PROCEDURE REPORT Name: KATERINA BANKS Room #: 214-P ADM IN M.R.#: [id number] Admission: 03/11/18 Attend Phys: John Jacobson MD Discharge: Date of : 38 Report #: [id number] THIS REPORT FOR: //name// CC: David Jacobson PREOPERATIVE DIAGNOSIS: Atrial flutter. POSTOPERATIVE DIAGNOSIS: Atrial flutter. DESCRIPTION OF PROCEDURE: The patient underwent informed consent. She was sedated by the Anesthesiology Service. She underwent successful synchronized DC cardioversion with 150 joules with baptism of sinus rhythm. CONCLUSIONS: Successful DC cardioversion with baptism of sinus rhythm. <ELECTRONICALLY SIGNED> By: John Jacobson MD 03/17/18 1110 1157 52 John Jacobson MD /nt
--- NOTE | ~2018-03-11 | EKG ---
[address] [place] [place] [address] ELECTROCARDIOGRAM REPORT Name: KATERINA BANKS Room #: 214-P [facility] M.R.#: [id number] Admission: 03/11/18 Attend Phys: John Jacobson MD Discharge: Date of : 38 Report #: [id number] THIS REPORT FOR: //name// [facility] Test Date: 2018-03-13 Test Time: 10:28:22 Pat Name: KATERINA BANKS Department: Room: 214 P Gender: F Roll Hauler: ALEX : 1940 Requested By: Pritesh Mcdowell Order Number: [id number] MD: James Jimenez Measurements Intervals [place] Rate: 98 P: 0 HI: 112 QRS: 26 QRSD: 170 T: 202 QT: 490 QTc: 626 Interpretive Statements Atrial fibrillation with demand ventricular-paced complexes No further rhythm analysis attempted due to paced rhythm Left bundle branch block Compared to ECG 03/11/2018 14:05:39 Atrial-paced complex(es) or rhythm no longer present Electronically Signed On 03-14-2018 8:06:57 CDT by James Jimenez [email or web address] <ELECTRONICALLY SIGNED> By: James Jimenez MD, [facility] 03/14/18 0806 1028 1028 James Jimenez MD, [facility] /EPI
[~2018-03-11 07:47] MED LIST changes: +CO Q1060 MG PO; +LOPRESSOR100 M1 PO; +PAXIL10 MG
[2018-03-11 09:00] LABS: ABSOLUTE NEUTROPHILS 3.8 thou/uL (1.4-8.2); BASOPHILS 0.8 % (0.0-2.0); EOSINOPHILS 2.1 % (0.0-3.0); HEMATOCRIT 45.6 % (37.0-47.0); HEMOGLOBIN 15.5 gm/dL (12.0-15.0); LYMPHOCYTES 17.7 % (24.0-44.0); MCH 33.1 pg (26.0-34.0); MCV 97.3 fL (80.0-100.0); MONOCYTES 9.6 % (1.0-8.0); PLATELET COUNT 171 thou/uL (150-400); POLYS 69.8 % (36.0-66.0); RBC 4.69 mil/uL (4.20-5.00); WBC 5.4 thou/uL (4.0-11.0)
[2018-03-11 09:08] LABS: ANION GAP 6 mmol/L (7-16); BUN 40 mg/dL (7-18); CALCIUM 9.2 mg/dL (8.5-10.1); CHLORIDE 102 mmol/L (98-107); CO2 29 mmol/L (21-32); CREATININE 1.5 mg/dL (0.6-1.0); GLUCOSE 131 mg/dL (74-106); POTASSIUM 3.7 mmol/L (3.5-5.1); SODIUM 137 mmol/L (136-145)
[2018-03-11 09:17] LABS: ALBUMIN 3.9 g/dL (3.4-5.0); SGOT 40 U/L (15-37); SGPT 52 U/L (30-65); TOTAL BILIRUBIN 0.6 mg/dL (<0.1-1.0); TOTAL PROTEIN 7.6 g/dL (6.4-8.2); TROPONIN-I < 0.04 ng/mL (<0.06)
[2018-03-12] VITALS (16 sets, daily range): BP systolic 96–121; BP diastolic 56–82
[2018-03-12 10:23] LABS: HEMOGLOBIN 14.9 gm/dL (12.0-15.0); MCH 33.3 pg (26.0-34.0); MCHC 33.9 g/dL (28.0-37.0); MCV 98.1 fL (80.0-100.0); RBC 4.49 mil/uL (4.20-5.00); WBC 5.8 thou/uL (4.0-11.0)
[2018-03-12 10:42] LABS: ALBUMIN 3.4 g/dL (3.4-5.0); CALCIUM 8.8 mg/dL (8.5-10.1); CREATININE 1.3 mg/dL (0.6-1.0); MAGNESIUM 2.2 mg/dL (1.8-2.4); POTASSIUM 3.7 mmol/L (3.5-5.1); TOTAL BILIRUBIN 0.6 mg/dL (<0.1-1.0); TOTAL PROTEIN 7.1 g/dL (6.4-8.2)
[2018-03-13 03:46] VITALS: BP 106/61
[2018-03-13 06:36] LABS: HEMATOCRIT 41.9 % (37.0-47.0); HEMOGLOBIN 14.2 gm/dL (12.0-15.0); MCH 33.1 pg (26.0-34.0); MCHC 33.9 g/dL (28.0-37.0); MCV 97.6 fL (80.0-100.0); RBC 4.29 mil/uL (4.20-5.00); RDW 14.6 % (10.5-14.5); WBC 6.5 thou/uL (4.0-11.0)
[2018-03-13 06:46] LABS: CALCIUM 8.7 mg/dL (8.5-10.1); CREATININE 1.3 mg/dL (0.6-1.0); MAGNESIUM 2.1 mg/dL (1.8-2.4); POTASSIUM 3.4 mmol/L (3.5-5.1)
[2018-03-13 07:10] VITALS: BP 107/56
[2018-03-13 15:22] LABS: CALCIUM 8.7 mg/dL (8.5-10.1); CREATININE 1.4 mg/dL (0.6-1.0); MAGNESIUM 1.9 mg/dL (1.8-2.4); POTASSIUM 3.3 mmol/L (3.5-5.1)
[2018-03-13 19:45] VITALS: BP 106/65
[2018-03-13 21:37] VITALS: BP 101/66
[2018-03-13 23:46] VITALS: BP 109/75
[2018-03-14 01:46] LABS: HEMATOCRIT 45.7 % (37.0-47.0); HEMOGLOBIN 15.4 gm/dL (12.0-15.0); MCH 33.1 pg (26.0-34.0); MCHC 33.8 g/dL (28.0-37.0); RBC 4.66 mil/uL (4.20-5.00); WBC 7.1 thou/uL (4.0-11.0)
[2018-03-14 01:51] LABS: CALCIUM 8.8 mg/dL (8.5-10.1); CREATININE 1.4 mg/dL (0.6-1.0); MAGNESIUM 2.1 mg/dL (1.8-2.4)
[2018-03-14 02:02] LABS: POTASSIUM 4.4 mmol/L (3.5-5.1)
[2018-03-14 04:50] VITALS: BP 105/65
[2018-03-14 08:18] VITALS: BP 105/65
[2018-03-14 11:26] VITALS: BP 106/60
[2018-03-14 15:36] VITALS: BP 112/66
[2018-03-14 20:13] VITALS: BP 97/58
[2018-03-14 23:36] VITALS: BP 103/53
[2018-03-15 05:58] LABS: HEMATOCRIT 43.8 % (37.0-47.0); HEMOGLOBIN 14.6 gm/dL (12.0-15.0); MCH 33.1 pg (26.0-34.0); MCHC 33.2 g/dL (28.0-37.0); MCV 99.4 fL (80.0-100.0); RBC 4.4 mil/uL (4.20-5.00); RDW 15.4 % (10.5-14.5); WBC 6.4 thou/uL (4.0-11.0)
[2018-03-15 06:01] VITALS: BP 112/56
[2018-03-15 06:07] LABS: CALCIUM 9.1 mg/dL (8.5-10.1); CREATININE 1.8 mg/dL (0.6-1.0); MAGNESIUM 2.2 mg/dL (1.8-2.4); POTASSIUM 4.3 mmol/L (3.5-5.1)
[2018-03-15 07:02] VITALS: BP 110/58
[2018-03-15 11:10] VITALS: BP 99/50
[2018-03-15 20:22] VITALS: BP 111/58
[2018-03-16] VITALS (10 sets, daily range): BP systolic 110–125; BP diastolic 54–63
[2018-03-16 05:18] LABS: ALBUMIN 3.3 g/dL (3.4-5.0); CALCIUM 8.9 mg/dL (8.5-10.1); CREATININE 1.7 mg/dL (0.6-1.0); PHOSPHORUS 4.3 mg/dL (2.5-4.9)
[2018-03-16 05:24] LABS: HEMATOCRIT 42.9 % (37.0-47.0); HEMOGLOBIN 14.4 gm/dL (12.0-15.0); MCH 33.3 pg (26.0-34.0); MCHC 33.5 g/dL (28.0-37.0); MCV 99.4 fL (80.0-100.0); RBC 4.32 mil/uL (4.20-5.00); RDW 15.3 % (10.5-14.5)
[2018-03-17 03:50] LABS: ALBUMIN 2.8 g/dL (3.4-5.0); CALCIUM 8.3 mg/dL (8.5-10.1); CREATININE 1.2 mg/dL (0.6-1.0); PHOSPHORUS 3.1 mg/dL (2.5-4.9); POTASSIUM 3.8 mmol/L (3.5-5.1)
[2018-03-17 04:10] VITALS: BP 110/51
[2018-03-17 08:00] VITALS: BP 127/64
[2018-03-17 09:01] LABS: ABSOLUTE NEUTROPHILS 5.1 thou/uL (1.4-8.2); BASOPHILS 0.6 % (0.0-2.0); EOSINOPHILS 1.2 % (0.0-3.0); HEMATOCRIT 38.1 % (37.0-47.0); HEMOGLOBIN 12.8 gm/dL (12.0-15.0); LYMPHOCYTES 9.9 % (24.0-44.0); MCH 33.6 pg (26.0-34.0); MCHC 33.7 g/dL (28.0-37.0); MCV 99.9 fL (80.0-100.0); MONOCYTES 10.6 % (1.0-8.0); PLATELET COUNT 126 thou/uL (150-400); POLYS 77.7 % (36.0-66.0); RBC 3.82 mil/uL (4.20-5.00); RDW 15.4 % (10.5-14.5); WBC 6.6 thou/uL (4.0-11.0)
[2018-03-17 12:00] VITALS: BP 100/46
[2018-03-17] MEDS ORDERED: PACERONE 200 M200 M1 PO (13:00)
[2018-03-17] MEDS ORDERED: IMDUR 30 MG TAB30 M1 PO (13:01)
== END 2018-03-17 14:54 | DRG 273 ==
LOC: ER 07:47 → CATH 11:22 → EDSTATUS 11:38 → ICU 14:39 → 2N 14:39
PROVIDERS: Emergency Medicine; Hospitalist; Internal Medicine; Internal Medicine Cardiovascular Disease
PROC: 05HB33Z Insertion of Infusion Device into Right Basilic Vein, Percutaneous Approach (ICD-10-PCS; 2018-03-12)
PROC: 02K83ZZ Map Conduction Mechanism, Percutaneous Approach (ICD-10-PCS; principal; 2018-03-16)
PROC: 02583ZZ Destruction of Conduction Mechanism, Percutaneous Approach (ICD-10-PCS; principal; 2018-03-16)
PROC: 5A2204Z Restoration of Cardiac Rhythm, Single (ICD-10-PCS; 2018-03-17)
PROC: 4A133B1 Monitoring of Arterial Pressure, Peripheral, Percutaneous Approach (ICD-10-PCS; 2018-03-17)
PROC: 4A133J1 Monitoring of Arterial Pulse, Peripheral, Percutaneous Approach (ICD-10-PCS; 2018-03-17)
PROC: 03HY32Z Insertion of Monitoring Device into Upper Artery, Percutaneous Approach (ICD-10-PCS; 2018-03-17)
DX: I47.2 Ventricular tachycardia (principal); I50.23 Acute on chronic systolic (congestive) heart failure; I42.9 Cardiomyopathy, unspecified; N17.9 Acute kidney failure, unspecified; I48.92 Unspecified atrial flutter; F41.9 Anxiety disorder, unspecified; I48.91 Unspecified atrial fibrillation; G47.33 Obstructive sleep apnea (adult) (pediatric); E78.5 Hyperlipidemia, unspecified; E86.9 Volume depletion, unspecified; E03.9 Hypothyroidism, unspecified; I11.0 Hypertensive heart disease with heart failure; M19.90 Unspecified osteoarthritis, unspecified site; J44.9 Chronic obstructive pulmonary disease, unspecified; E78.00 Pure hypercholesterolemia, unspecified; Z90.710 Acquired absence of both cervix and uterus; Z95.0 Presence of cardiac pacemaker; Z88.6 Allergy status to analgesic agent; Z88.1 Allergy status to other antibiotic agents; Z88.0 Allergy status to penicillin; Z88.2 Allergy status to sulfonamides; Z88.8 Allergy status to other drugs, medicaments and biological substances; Z87.891 Personal history of nicotine dependence; Z82.49 Family history of ischemic heart disease and other diseases of the circulatory system; Z79.899 Other long term (current) drug therapy
CPT/HCPCS: 10078; 10081; 27000; 62110; 62900; 70005

== ENCOUNTER 2018-03-17 12:15 | Inpatient (IN) | payer OTHER ==
[~2018-03-17] VITALS: Ht 167.6 cm; Wt 77.4 kg
--- NOTE | ~2018-03-17 | PLAN ---
[facility] [place] [address] REHAB UNIT PLAN OF CARE Name: KATERINA BANKS Room #: 515-P ADM IN M.R.#: [id number] Admission: 03/17/18 Attend Phys: Miller Rivero MD Discharge: Date of : 38 Report #: [id number] THIS REPORT FOR: //name// CC: Miller Higginbotham DATE OF SERVICE: 03/19/2018 SUBJECTIVE: The patient was seen earlier. She has been in no distress overnight. Temperature 36.3, pulse 60, respirations 18, blood pressure 130/72, last recorded. She has been working in therapies with transfers, contact guard assistance. Gait contact guard 50 feet with a front-wheeled walker. In occupational therapy, upper body dressing is min assist with lower body, min assist. ASSESSMENT: 1. Medical complexity with generalized debilitation. 2. Gait instability. 3. Supraventricular tachycardia with aberration status post ablation. 4. Left ventricular systolic heart failure. 5. Acute renal failure that improved. 6. Atrial fibrillation. PLAN: The overall plan of care is based on the preadmission screen, post-admission physician evaluation and information garnered from therapy assessments. 1. Estimated length of stay is probably around 7-10 days and likely longer if needed. 2. Medical prognosis is reasonably good. 3. Anticipated interventions includes the interdisciplinary acute inpatient rehabilitation program with goal of maximizing the patient's functional independence, so that she can hopefully return back to her prior living situation. 4. Anticipated functional outcomes would be for the patient to achieve her functional independence with gait ideally back to the single point cane, and likely at least at a walker level with mobility and ADLs. 5. Discharge destination is back to her own apartment with her boyfriend across the street. 6. Expected therapy by discipline includes PT and OT 1 and 1-1/2 hours per day, each five days a week throughout the duration of the acute inpatient rotation stay. <ELECTRONICALLY SIGNED> By: Miller Rivero MD 03/23/18 1216 0945 0959 Miller Rivero MD /[facility]
--- NOTE | ~2018-03-17 | HC ---
[facility] [place] [address] CONSULTATION Name: KATERINA BANKS Room #: 515-P ADM IN M.R.#: [id number] Admission: 03/17/18 Attend Phys: Miller Rivero MD Discharge: Date of : 38 Report #: [id number] THIS REPORT FOR: //name// CC: Miller Higginbotham DATE OF SERVICE: 03/19/2018 ATTENDING PHYSICIAN: Miller Rivero M.D. WOOD GRAINER: Otis Baxter, PhD CLINICAL PRESENTATION: The patient is a 77-year-old female admitted to [facility] for a comprehensive inpatient rehabilitation program to improve functional mobility, activities of daily living and self-care and mental status secondary to deficits from medical complexity and generalized debility. She reports having been living independently in her own apartment when she started experiencing shortness of breath and changes in cardiac status. She was brought into the hospital and diagnosed with V-tach, acute exacerbation of CHF and acute renal insufficiency. She underwent an ablation for ventricular tachycardia. She carries diagnoses that include cardiomyopathy, atrial fibrillation, hypothyroidism, degenerative arthritis and tremor. A complete description of her medical condition and history can be found in her medical record. Neuropsychological consultation was requested to provide assistance in the assessment of cognitive and emotional status and to provide recommendations and services. Prior to this most recent admission, she was living in a low income senior apartment. She has a male guidance and control system engineer that lives nearby and assists her with driving and aspects of instrumental activities of daily living such as shopping, laundry and light sales representative door to door. The patient though reports having been independent with managing her medication and finances. She is a high school graduate. 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 She has 3 children. TECHNIQUES UTILIZED: Clinical interview, review of medical records, staff consultation and behavioral observation, mini mental status exam 2 standard version, clock drawing and family interview - male guidance and control system engineer. EXAMINATION FINDINGS: The patient was alert and cooperative with the assessment. There is no evidence of aphasia. She does not report auditory or visual hallucinations. There is no evidence of thought disorder. She describes a diminished appetite and variability in memory. Sleep is described as within normal limits. Subjective depression and anxiety are reported. However, [facility] [address] [place] [address] CONSULTATION Name: KATERINA BANKS Room #: 515-P [facility] IN [facility].#: [id number] Admission: 03/17/18 Attend Phys: Miller Rivero MD Discharge: Date of : 38 Report #: [id number] anxiety is described as more of a concern than depression. The patient discontinued driving about 1 year ago. Her performance on the MMSE 2 brief version is within normal limits with a raw score of 14/16 and a T-score of 45. She was 3/3 for initial registration, 5/5 for orientation to time and place. She was 1/3 for immediate recall of 3 items after a brief time delay and distraction. She was 3/5 for serial sevens, 2/2 for naming, 1/1 for repetition. Auditory comprehension, reading, writing and ability to copy a simple geometric design are within normal limits. She was able to draw a clock and set the hands at a designated time. DIAGNOSTIC IMPRESSION: Generalized Anxiety Disorder RECOMMENDATIONS: The patient may benefit from use of an antidepressant with anxiolytic features. Psychological counseling may also be of benefit to assist in development of strategies to improve general coping skills for the management of mood and anxiety. Reassurance in regard to her medical wellbeing will also assist in the management of mood and optimism in regard to her wellbeing and recovery. Thank you very much for allowing me to provide the consultation on this patient. <ELECTRONICALLY SIGNED> By: Otis Baxtre, PhD 03/24/18 1758 1526 1802 Otis Baxter, PhD /nt
--- NOTE | ~2018-03-17 | H ---
[facility] [place] [address] HISTORY AND PHYSICAL Name: KATERINA BANKS Room #: 515-P ADM IN M.R.#: [id number] Admission: 03/17/18 Attend Phys: Miller Rivero MD Discharge: Date of : 38 Report #: [id number] THIS REPORT FOR: //name// CC: Miller Higginbotham DATE OF SERVICE: 03/17/2018 HISTORY AND PHYSICAL/POST ADMISSION PHYSICIAN EVALUATION HISTORY OF PRESENT ILLNESS: The patient is a 77-year-old white female originally admitted to [facility] on 03/11/2018, with shortness of breath and fatigue. She was diagnosed with V-tach, acute exacerbation of CHF, and acute renal insufficiency. She ended up undergoing a scheduled ablation for ventricular tachycardia. She has been followed closely by Cardiology and Nephrology. She had a recent biventricular implantable cardiac defibrillator placed for 09/25/2017 for cardiomyopathy and a recent cardioversion on 02/25/2018 for atrial fibrillation. The patient was noted to have significant functional mobility and ADL deficits with some gait instability and a decreased functional level from her premorbid status. She has now been admitted for acute in-hospital inpatient rehabilitation. PAST MEDICAL HISTORY: Heart disease, cardiomyopathy, atrial fibrillation, hypothyroidism, degenerative arthritis, and tremor. 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 FAMILY HISTORY: Father with coronary artery disease. HABITS: No history of tobacco abuse or alcohol abuse. ALLERGIES: She does have multiple allergies as are noted. MEDICATIONS: Please see the full medication listing. These include supplements, vitamins and herbals. SOCIAL HISTORY: Lives alone in low income senior apartment. States ramp with rails to enter, no stairs inside the apartment, utilizes single point cane and quad cane at home. Electric scooter utilized at stores when available premorbidly. Does not drive. Her boyfriend lives across the street and helps with driving, grocery shopping, laundry and light sow farm technician. REVIEW OF SYSTEMS: No current complaints of chest pain, shortness of breath or abdominal discomfort. No focal extremity pain complaints. [facility] [address] [place] [address] HISTORY AND PHYSICAL Name: KATERINA BANKS Room #: 515-P [facility] IN [facility].#: [id number] Admission: 03/17/18 Attend Phys: Miller Rivero MD Discharge: Date of : 38 Report #: [id number] PHYSICAL EXAMINATION: GENERAL: The patient is a pleasant 77-year-old white female in no obvious distress. VITAL SIGNS: Last recorded temperature 97.9, pulse 60, respirations 18, blood pressure 122/61. She is alert and pleasant. HEENT: Appeared to be benign. Facies appeared symmetric. She appeared to be a reasonable historian. Left anterior chest wall has the incision which is healing from her prior defibrillator placement. CARDIOVASCULAR: Sounded regular rate and rhythm. ABDOMEN: Bowel sounds positive, nontender. CHEST: Sounded clear. GENITOURINARY AND RECTAL: Deferred. EXTREMITIES: She has functional range of motion of both upper extremities. Strength is a grade 4 to 4-/5. DTRs are trace to 1. In her lower extremities, no focal calf swelling, functional range of motion with strength of grade 4-/5. DTRs are trace to 1. Negative Homans. She is needing assistance with basic functional mobility skills. Transfers are mod assist. Gait min assist 10 feet. ASSESSMENT: A 77-year-old white female with the following problem list: 1. Medical complexity with generalized debilitation. 2. Gait instability. 3. Supraventricular tachycardia with aberration status post ablation. 4. Left ventricular systolic heart failure. 5. Acute renal failure that has improved. 6. Atrial fibrillation. PLAN: The patient is admitted for acute in-hospital inpatient rehabilitation. From a postadmission physician evaluation perspective, there are no relevant changes since the preadmission screening. Please see the above review of prior and current medical and functional conditions and comorbidities. Please see the patient's previous and current functional status. As far as risk of complications, the patient has multiple medical comorbidities as noted above. Initial plan of care involves the interdisciplinary acute inpatient rehabilitation program with the goal of maximizing the patient's functional independence, so she can hopefully return back to her prior living situation. Prognosis is reasonably good with estimated length of stay probably at least 7-10 days and likely longer if needed. Prognosis is reasonably good. Potential barriers would include her multiple medical comorbidities and decreased functional status. <ELECTRONICALLY SIGNED> By: Miller Rivero MD 03/23/18 1216 0848 0938 Miller Rivero MD /[facility]
--- NOTE | ~2018-03-17 | HC ---
[facility] [place] [address] CONSULTATION Name: KATERINA BANKS Room #: 515-P [facility] IN M.R.#: [id number] Admission: 03/17/18 Attend Phys: Miller Rivero MD Discharge: Date of : 38 Report #: [id number] THIS REPORT FOR: //name// CC: Miller Higginbotham DATE OF SERVICE: 03/25/2018 REASON FOR CONSULTATION: CPAP questions. IMPRESSION: 1. History of obstructive sleep apnea. 2. Tachycardia, status post cardioversion and ablation. 2. Congestive heart failure. 3. Acute kidney injury. 4. Hypothyroidism. PLAN: As she likes our current setting of 13 cm, we will do a nocturnal desat on 13 cm with 4 liters. We will check and see what her setting is at home. We will follow closely with you. HISTORY OF PRESENT ILLNESS: A 77-year-old female with history of obstructive sleep apnea followed by Dr. Connors. Currently, on a set pressure of 13 home. It appears as an AHI of 2.8, leak of 58 from 11/07 to 02/04/2018. She is also on oxygen, but noted as 2 liters. She believes she is on 4 liters at home. PAST SURGICAL HISTORY: Include aortic surgery or dissection, pacemaker, left lumpectomy, cardioversion and hysterectomy. FAMILY HISTORY: Positive for cancer, heart failure, Alzheimer's. SOCIAL HISTORY: Quit smoking in 1991, smoked for 16 years, a pack and a half a day. Negative ETOH. ALLERGIES: ATENOLOL, ATORVASTATIN, BACTRIM, CEPHALEXIN, CINOXACIN, CLONIDINE, IBUPROFEN, REGLAN, NITROFURANTOIN, PENICILLIN G, SIMVASTATIN. History of JOSEPH, hyperlipidemia, cardiomyopathy, coronary artery disease, breast cancer, atrial fibrillation. MEDICATIONS: Include DuoNeb p.r.n., Lasix, rivaroxaban, Zofran, amiodarone, losartan, levothyroxine, metoprolol. PHYSICAL EXAMINATION: VITAL SIGNS: Temperature 97.1, pulse 62, respirations 20, BP 132/62. [facility] [address] [place] [address] CONSULTATION Name: KATERINA BANKS Room #: 515-P [facility] IN ..#: [id number] Admission: 03/17/18 Attend Phys: Miller Rivero MD Discharge: Date of : 38 Report #: [id number] NEUROLOGIC: Alert, oriented. EYES: Negative icterus. NECK: Negative JVD. LUNGS: Clear. HEART: Regular. LABORATORY DATA: Chest x-ray showed cardiomegaly, no acute infiltrate on the 7th, creatinine 1.1. White count 5.6, hemoglobin 12.9. We will follow closely with you. <ELECTRONICALLY SIGNED> By: Jairo Martinez MD 03/27/18 1747 1801 2328 Jairo Martinez MD /nt
[2018-03-17] MEDS ORDERED: PACERONE 200 M200 M1 PO (13:00)
[2018-03-17] MEDS ORDERED: IMDUR 30 MG TAB30 M1 PO (13:01)
[2018-03-17 15:38] VITALS: BP 115/57
[2018-03-17 20:41] VITALS: BP 109/50
[2018-03-17 20:48] VITALS: BP 122/61
[2018-03-18 07:26] LABS: HEMATOCRIT 38.5 % (37.0-47.0); HEMOGLOBIN 12.8 gm/dL (12.0-15.0); MCH 33.4 pg (26.0-34.0); MCHC 33.1 g/dL (28.0-37.0); MCV 100.7 fL (80.0-100.0); RBC 3.83 mil/uL (4.20-5.00); RDW 15.7 % (10.5-14.5); WBC 5.5 thou/uL (4.0-11.0)
[2018-03-18 07:36] LABS: ALBUMIN 2.9 g/dL (3.4-5.0); CALCIUM 8.4 mg/dL (8.5-10.1); CREATININE 1.1 mg/dL (0.6-1.0)
[2018-03-18 20:36] VITALS: BP 130/72
[2018-03-19 08:15] VITALS: BP 125/67
[2018-03-19 21:08] VITALS: BP 118/62
[2018-03-20 08:55] VITALS: BP 148/68
[2018-03-20 20:00] VITALS: BP 145/52
[2018-03-21 08:00] VITALS: BP 175/60
[2018-03-21 14:17] VITALS: BP 113/49
[2018-03-21 19:44] VITALS: BP 124/65
[2018-03-22 05:46] LABS: ABSOLUTE NEUTROPHILS 3.7 thou/uL (1.4-8.2); BASOPHILS 0.8 % (0.0-2.0); EOSINOPHILS 3.1 % (0.0-3.0); HEMOGLOBIN 12.9 gm/dL (12.0-15.0); LYMPHOCYTES 18.5 % (24.0-44.0); MCH 33.2 pg (26.0-34.0); MCHC 33.1 g/dL (28.0-37.0); MCV 100.5 fL (80.0-100.0); MONOCYTES 11.7 % (1.0-8.0); PLATELET COUNT 142 thou/uL (150-400); POLYS 65.9 % (36.0-66.0); RBC 3.88 mil/uL (4.20-5.00); RDW 16.1 % (10.5-14.5); WBC 5.6 thou/uL (4.0-11.0)
[2018-03-22 06:04] LABS: CALCIUM 8.7 mg/dL (8.5-10.1); CREATININE 1.1 mg/dL (0.6-1.0); MAGNESIUM 2.1 mg/dL (1.8-2.4)
[2018-03-22 07:30] VITALS: BP 135/69
[2018-03-22 19:24] VITALS: BP 122/59
[2018-03-23 08:00] VITALS: BP 129/70
[2018-03-23 21:29] VITALS: BP 129/64
[2018-03-24 08:15] VITALS: BP 138/65
[2018-03-24 20:58] VITALS: BP 142/73
[2018-03-25 08:15] VITALS: BP 132/62
[2018-03-25 18:36] VITALS: BP 132/62
[2018-03-25 19:59] VITALS: BP 128/58
[2018-03-26 07:17] VITALS: BP 124/63
[2018-03-26 19:45] VITALS: BP 139/71
[2018-03-27 06:16] LABS: HEMATOCRIT 40.2 % (37.0-47.0); HEMOGLOBIN 13.6 gm/dL (12.0-15.0); MCH 34.1 pg (26.0-34.0); MCV 100.3 fL (80.0-100.0); RBC 4.01 mil/uL (4.20-5.00); RDW 16.4 % (10.5-14.5); WBC 5.8 thou/uL (4.0-11.0)
[2018-03-27 06:33] LABS: CALCIUM 8.7 mg/dL (8.5-10.1); CREATININE 1.1 mg/dL (0.6-1.0); MAGNESIUM 1.9 mg/dL (1.8-2.4); TOTAL BILIRUBIN 0.8 mg/dL (<0.1-1.0); TOTAL PROTEIN 6.1 g/dL (6.4-8.2)
[2018-03-27 06:38] LABS: POTASSIUM 2.9 mmol/L (3.5-5.1)
[2018-03-27 07:40] VITALS: BP 142/71
[2018-03-27 08:33] LABS: BE(vivo) 9.4 mmol/L (-2 to +3); HCO3 33.8 mmol/L (22.0-26.0); PCO2 44.4 mmHg (35.0-45.0); PO2 67.8 mmHg (80.0-100.0); pH 7.499 (7.360-7.450); sO2 94.8 % (92.0-98.0)
[2018-03-27 13:15] VITALS: BP 164/77
[2018-03-27 19:37] VITALS: BP 146/71
[2018-03-28 07:57] VITALS: BP 140/66
[2018-03-28 08:03] VITALS: BP 106/56
[2018-03-28] MEDS ORDERED: LASIX 40 MG TAB40 MG PO (08:26)
[2018-03-28] MEDS ORDERED: KLOR-CON 1010 MEQ PO ×2 (08:26→11:22)
[2018-03-28 09:35] VITALS: BP 132/62
[2018-03-28 09:51] LABS: ABSOLUTE NEUTROPHILS 4.7 thou/uL (1.4-8.2); BASOPHILS 1.1 % (0.0-2.0); EOSINOPHILS 2.6 % (0.0-3.0); HEMATOCRIT 44.9 % (37.0-47.0); LYMPHOCYTES 14.2 % (24.0-44.0); MCH 33.6 pg (26.0-34.0); MCHC 33.4 g/dL (28.0-37.0); MCV 100.4 fL (80.0-100.0); MONOCYTES 8.7 % (1.0-8.0); PLATELET COUNT 260 thou/uL (150-400); POLYS 73.4 % (36.0-66.0); RBC 4.48 mil/uL (4.20-5.00); RDW 16.5 % (10.5-14.5); WBC 6.3 thou/uL (4.0-11.0)
[2018-03-28 09:58] LABS: CALCIUM 9.3 mg/dL (8.5-10.1); CREATININE 1.3 mg/dL (0.6-1.0); MAGNESIUM 2.1 mg/dL (1.8-2.4); POTASSIUM 3.4 mmol/L (3.5-5.1)
[2018-03-28] MEDS ORDERED: VITAMIN D2000 UNIT PO (11:21)
== END 2018-03-28 13:39 | disposition home health service (06) | DRG 947 ==
LOC: ENTRNSPT 03-28 13:24 → EDTRNSPTSTS 03-28 13:29
PROVIDERS: Internal Medicine Pulmonary Disease; Nurse Practitioner; Nurse Practitioner Family
DX: R53.81 Other malaise (principal); I50.23 Acute on chronic systolic (congestive) heart failure; I47.1 Supraventricular tachycardia; N17.9 Acute kidney failure, unspecified; I42.9 Cardiomyopathy, unspecified; E46 Unspecified protein-calorie malnutrition; R26.9 Unspecified abnormalities of gait and mobility; I48.91 Unspecified atrial fibrillation; E03.9 Hypothyroidism, unspecified; M19.90 Unspecified osteoarthritis, unspecified site; R25.1 Tremor, unspecified; K59.00 Constipation, unspecified; D69.6 Thrombocytopenia, unspecified; F41.1 Generalized anxiety disorder; G47.33 Obstructive sleep apnea (adult) (pediatric); E78.5 Hyperlipidemia, unspecified; I25.10 Atherosclerotic heart disease of native coronary artery without angina pectoris; Z60.2 Problems related to living alone; F32.9 Major depressive disorder, single episode, unspecified; I27.20 Pulmonary hypertension, unspecified; E87.6 Hypokalemia; Z95.810 Presence of automatic (implantable) cardiac defibrillator; Z90.710 Acquired absence of both cervix and uterus; Z68.27 Body mass index [BMI] 27.0-27.9, adult; Z87.891 Personal history of nicotine dependence; Z88.0 Allergy status to penicillin; Z88.6 Allergy status to analgesic agent; Z88.1 Allergy status to other antibiotic agents; Z88.8 Allergy status to other drugs, medicaments and biological substances; Z88.2 Allergy status to sulfonamides; Z79.899 Other long term (current) drug therapy; Z82.49 Family history of ischemic heart disease and other diseases of the circulatory system; Z80.9 Family history of malignant neoplasm, unspecified; Z82.0 Family history of epilepsy and other diseases of the nervous system
CPT/HCPCS: 10112

== ENCOUNTER 2018-04-20 12:33 | Inpatient (IN) | payer OTHER ==
[~2018-04-20] VITALS: Ht 167.6 cm; Wt 70.8 kg
--- NOTE | ~2018-04-20 | EKG ---
[address] [address] ELECTROCARDIOGRAM REPORT Name: KATERINA BANKS Room #: 216- ADM IN M.R.#: [id number] Admission: 04/20/18 Attend Phys: John Jacobson MD Discharge: Date of : 36 Report #: [id number] THIS REPORT FOR: //name// [facility] Test Date: 2018-04-22 Test Time: 06:34:09 Pat Name: KATERINA BANKS Department: Room: 216 Gender: F Partner Alliance Manager: AIDA : 1940 Requested By: John Jacobson Order Number: [id number] MD: James Jimenez Measurements Intervals [place] Rate: 62 P: 0 CO: 34 QRS: -61 QRSD: 214 T: 114 QT: 621 QTc: 631 Interpretive Statements Atrial-ventricular dual-paced complexes No further analysis attempted due to paced rhythm Compared to ECG 04/20/2018 12:47:51 Supraventricular tachycardia no longer present Electronically Signed On 04-22-2018 8:34:25 CDT by James Jimenez [email or web address] <ELECTRONICALLY SIGNED> By: James Jimenez MD, [facility] 04/22/18 0834 0634 James Jimenez MD, [facility] /EPI
--- NOTE | ~2018-04-20 | EKG ---
[address] [address] ELECTROCARDIOGRAM REPORT Name: KATERINA BANKS Room #: 216-P ADM IN M.R.#: [id number] Admission: 04/20/18 Attend Phys: John Jacobson MD Discharge: Date of : 38 Report #: [id number] THIS REPORT FOR: //name// [facility] ED Test Date: 2018-04-20 Test Time: 12:47:51 Pat Name: KATERINA BANKS Department: Room: Gender: F Washer Engineer Helper: veronica : 1940 Requested By: Benjamin Sequeira Order Number: [id number] MD: John Jacobson Measurements Intervals [place] Rate: 117 P: VT: QRS: -25 QRSD: 181 T: 140 QT: 432 QTc: 603 Interpretive Statements SUPRAVENTRICULAR TACHYCARDIA WITH ABERRATION Compared to ECG 03/14/2018 00:56:19 Electronically Signed On 04-21-2018 7:49:31 CDT by John Jacobson [email or web address] <ELECTRONICALLY SIGNED> By: John Jacobson MD 04/21/18 0749 1247 124 John Jacobson MD /BENJAMIN
--- NOTE | ~2018-04-20 | 2DMMODE ---
[facility] [address] [place] [address] 2 D/M-MODE ECHOCARDIOGRAM Name: KATERINA BANKS Room #: 216-P ADM IN ..#: [id number] Admission: 04/20/18 Attend Phys: John Jacobson Discharge: Date of : 36 Date of Service: 04/21/18 0942 Report #: [id number] THIS REPORT FOR: //name// APPROVED REPORT Study performed: 04/21/2018 08:01:33 EXAM: Comprehensive 2D, Doppler, and color-flow Echocardiogram Patient Location: Bedside Room #: 216 Status: routine BSA: 1.80 BP: 126/68 mmHg Other Information Study Quality: Good Indications Congestive Heart Failure COPD Atrial Fibrillation Pacemaker Hypertension/HDD Hx of aortic dissection (1991) Dacron patch, SOB, limited to assess LV function 2D Dimensions RVDd: 51.29 mm LVEF(%): 14.89 (>50%) IVSd: 12.70 (7-11mm) LVDd: 53.26 mm PWd: 12.38 (7-11mm) Ascending Ao: 44.52 (22-36mm) LVDs: 49.68 (25-40mm) Aortic Root: 43.47 mm IVC: 23.00 mm Carr's LVEF: 14.89 % Volumes Left Atrial Volume (Systole) Single Plane 4CH: 144.64 mL Single Plane 2CH: 120.86 mL LA ESV Index: 82.00 mL/m2 Aortic Valve AoV Peak Randy.: 1.70 m/s AO Peak Gr.: 11.60 mmHg AI Vmax: 3.25 m/s [facility] [address] [place] [address] 2 D/M-MODE ECHOCARDIOGRAM Name: KATERINA BANKS Room #: 216-P ADM IN [facility]#: [id number] Admission: 04/20/18 Attend Phys: John Diazthe [facility] institute[facility] Discharge: Date of : 38 Date of Service: 04/21/18 0942 Report #: [id number] AI [place]: 2.46 m/s2 AI PHT: 382.67 ms Tricuspid Valve TR Peak Randy.: 3.18 m/s RAP Estimate: 15.00 mmHg TR Peak Gr.: 40.50 mmHg PA Pressure: 56.00 mmHg Left Ventricle Left ventricle is borderline dilated. Mild concentric left ventricular hypertrophy. Left ventricular systolic function is severely decreased. LVEF is 25%. Right Ventricle Right ventricle is dilated. The right ventricular systolic function is normal. Atria Left atrium is severely dilated. Color doppler consistent with PFO/ASD with left to right shunting, no right to left shunting was visualized with contrast bubble injection. Right atrium is severely dilated. Aortic Valve Aortic valve is mildly calcified. Moderate aortic regurgitation. There is no aortic valvular stenosis. Mitral Valve Mild mitral annular calcification. Moderate mitral regurgitation. No evidence of mitral valve stenosis. Tricuspid Valve The tricuspid valve is normal in structure. Moderate tricuspid regurgitation. PAP is estimated at 56 mmHg. Great Vessels Aortic root is dilated at 4.3 cm. Ascending aorta is dilated at 4.5 cm. IVC is dilated and collapses <50% with inspiration. Pericardium There is no pericardial effusion. <Conclusion> Abbreviated study Left ventricular systolic function is severely decreased. [facility] [address] [place] [address] 2 D/M-MODE ECHOCARDIOGRAM Name: KATERINA BANKS Room #: 216-P [facility] IN M.R.#: [id number] Admission: 04/20/18 Attend Phys: [facility] Discharge: Date of : 38 Date of Service: 04/21/18941 Report #: [id number] LVEF is 25%. Both atria are severely dilated. Color doppler consistent with PFO/ASD with left to right shunting, no right to left shunting was visualized with contrast bubble injection. Aortic valve is mildly calcified. Moderate aortic regurgitation. Mild mitral annular calcification. Moderate mitral regurgitation. Ascending aorta is dilated at 4.5 cm. There is no pericardial effusion. <ELECTRONICALLY SIGNED> By: James Jimenez MD, [facility] 04/21/1842 1 0942 James Jimenez MD, FACC /INF
--- NOTE | ~2018-04-20 | D ---
[facility] [place] [address] DISCHARGE SUMMARY Name: KATERINA BANKS Room #: 216-P ADM IN M.R.#: [id number] Admission: 04/20/18 Attend Phys: John Jacobson MD Discharge: Date of : 38 Report #: [id number] THIS REPORT FOR: //name// CC: David Jacobson DISCHARGE DIAGNOSES: 1. Atrial fibrillation/atrial flutter. 2. Cardiomyopathy. 3. Hypertension. 4. Hyperlipidemia. 5. Chronic obstructive pulmonary disease. 6. Dual-chamber St. Catrachito ICD. PROCEDURES PERFORMED: AV node ablation. HISTORY OF PRESENT ILLNESS: The patient is a 77-year-old who I see quite frequently. She has a history of cardiomyopathy, status post upgraded recently to an ICD. She also has a long-standing history of recurrent atrial fibrillation and more recently, we have been having issues with atypical atrial flutter. She underwent ablation for this left-sided atypical flutter that was successfully ablated by isolating the right superior pulmonary vein, but she also had multiple other atrial flutters while we were in there. I saw her last week when she went back into the flutter. I was able to pace terminate her in the clinic, but she called in and said she had gone back into it, so she came into the Emergency Room. I attempted to pace her out of this and this was not successful. As such, given that she was very symptomatic with this, we decided to admit her in the middle of the night. She did convert back to sinus on her own. We have previously discussed that if this rhythm was not resolved that we would proceed with an AV node ablation as this results in 1:1 tachycardia as it is difficult to rate control. HOSPITAL COURSE: The patient underwent AV node ablation on 04/21/2018, which was successful. We made some programming changes to her pacemaker defibrillator. Overnight, she did well with no issues. On telemetry, she remained in sinus rhythm with AV sequential pacing. On the following day, the patient reports she was feeling much improved. She denied any chest pain or shortness of breath. PHYSICAL EXAMINATION: HEART: Regular rate and rhythm. LUNGS: Clear to auscultation bilaterally. GENITOURINARY: Groin was healing nicely. [facility] [address] [place] [address] DISCHARGE SUMMARY Name: KATERINA BANKS Room #: 216-P ADM IN ..#: [id number] Admission: 04/20/18 Attend Phys: John Jacobson MD Discharge: Date of : 38 Report #: [id number] As such, she was deemed stable for discharge home. She will continue on her same home medications, including Xarelto and amiodarone therapy. By: 0920 1040 John Jacobson MD /nt
[~2018-04-20 12:33] MED LIST changes: +KLOR-CON 1010 MEQ PO; +VITAMIN D2000 UNIT PO
[2018-04-20 12:37] VITALS: BP 114/72
[2018-04-20 12:49] LABS: ABSOLUTE NEUTROPHILS 4.4 thou/uL (1.4-8.2); BASOPHILS 0.7 % (0.0-2.0); EOSINOPHILS 0.7 % (0.0-3.0); HEMATOCRIT 47.1 % (37.0-47.0); HEMOGLOBIN 15.9 gm/dL (12.0-15.0); LYMPHOCYTES 18.3 % (24.0-44.0); MCH 33.6 pg (26.0-34.0); MCHC 33.7 g/dL (28.0-37.0); MONOCYTES 8.8 % (1.0-8.0); PLATELET COUNT 167 thou/uL (150-400); POLYS 71.5 % (36.0-66.0); RBC 4.71 mil/uL (4.20-5.00); RDW 16.2 % (10.5-14.5); WBC 6.2 thou/uL (4.0-11.0)
[2018-04-20 12:58] LABS: CALCIUM 9.6 mg/dL (8.5-10.1); CREATININE 1.5 mg/dL (0.6-1.0); POTASSIUM 3.4 mmol/L (3.5-5.1)
[2018-04-20 13:07] LABS: TROPONIN-I 0.04 ng/mL (<0.06)
[2018-04-20] MEDS ORDERED: IMDUR 60 MG TAB60 M1 PO (13:17)
[2018-04-20 14:00] VITALS: BP 114/72
[2018-04-20 14:45] VITALS: BP 111/70
[2018-04-20 14:53] VITALS: BP 111/53
[2018-04-20] MEDS ORDERED: COLACE100 MG PO (15:26)
[2018-04-20 19:45] VITALS: BP 121/60
[2018-04-20 23:41] VITALS: BP 117/62
[2018-04-21 05:27] VITALS: BP 126/68
[2018-04-21 08:39] VITALS: BP 123/60
[2018-04-21 12:08] VITALS: BP 128/59
[2018-04-21 15:10] VITALS: BP 128/59
[2018-04-21 19:29] VITALS: BP 117/59
[2018-04-22 00:04] VITALS: BP 143/78
[2018-04-22 04:47] VITALS: BP 125/65
[2018-04-22 07:57] VITALS: BP 128/58
[2018-04-22 10:17] VITALS: BP 128/59
== END 2018-04-22 12:41 | disposition home health service (06) | DRG 274 ==
LOC: ER 12:33 → EROBS 13:51 → 2N 13:51
PROVIDERS: Emergency Medicine
PROC: 02583ZZ Destruction of Conduction Mechanism, Percutaneous Approach (ICD-10-PCS; principal; 2018-04-21)
DX: I48.91 Unspecified atrial fibrillation (principal); I13.0 Hypertensive heart and chronic kidney disease with heart failure and stage 1 through stage 4 chronic kidney disease, or unspecified chronic kidney disease; I47.1 Supraventricular tachycardia; J44.9 Chronic obstructive pulmonary disease, unspecified; F41.9 Anxiety disorder, unspecified; I48.92 Unspecified atrial flutter; I50.9 Heart failure, unspecified; G47.33 Obstructive sleep apnea (adult) (pediatric); I42.9 Cardiomyopathy, unspecified; E03.9 Hypothyroidism, unspecified; N18.9 Chronic kidney disease, unspecified; E78.00 Pure hypercholesterolemia, unspecified; Z90.710 Acquired absence of both cervix and uterus; Z85.3 Personal history of malignant neoplasm of breast; Z95.0 Presence of cardiac pacemaker; Z88.6 Allergy status to analgesic agent; Z88.1 Allergy status to other antibiotic agents; Z88.0 Allergy status to penicillin; Z88.2 Allergy status to sulfonamides; Z88.8 Allergy status to other drugs, medicaments and biological substances; Z87.891 Personal history of nicotine dependence; I25.2 Old myocardial infarction; Z79.899 Other long term (current) drug therapy
CPT/HCPCS: 10194; 62110; 62900; 70005

== ENCOUNTER 2018-07-27 11:05 | Inpatient (IN) | payer OTHER ==
[~2018-07-27] VITALS: Ht 165.1 cm; Wt 72.6 kg
--- NOTE | ~2018-07-27 | 2DMMODE ---
[facility] [address] [place] [address] 2 D/M-MODE ECHOCARDIOGRAM Name: KATERINA BANKS Room #: 213-P [facility] IN ..#: [id number] Admission: 07/28/18 Attend Phys: Terry Acevedo, Discharge: Date of : 38 Date of Service: 08/01/18 1547 Report #: [id number] THIS REPORT FOR: //name// APPROVED REPORT Study performed: 08/01/2018 14:00:32 EXAM: Comprehensive 2D, Doppler, and color-flow Echocardiogram Patient Location: Bedside Room #: 213 Status: routine BSA: 1.78 HR: 63 bpm BP: 128/67 mmHg Rhythm: NSR Other Information Study Quality: AdequateGood Risk Factors: Cardiac Risk Factors: HTN Indications COPD Hypertension/HDD Hx. Aortic dissection 2D Dimensions IVSd: 11.67 (7-11mm) LVDd: 56.04 mm PWd: 12.42 (7-11mm) Ascending Ao: 43.32 (22-36mm) LVDs: 49.24 (25-40mm) Aortic Root: 47.09 mm IVC: 26.00 mm Aortic Valve AoV Peak Randy.: 2.18 m/s AO Peak Gr.: 19.56 mmHg LVOT Max P.75 mmHg LVOT Max V: 1.20 m/s AI Vmax: 4.00 m/s AI [place]: 2.14 m/s2 AI PHT: 547.50 ms Mitral Valve MV Max Randy.: 4.52 m/s MV Mean Randy.: 3.32 m/s [facility] [address] [place] [address] 2 D/M-MODE ECHOCARDIOGRAM Name: KATERINA BANKS Room #: 213-P ADM IN [facility]#: [id number] Admission: 07/28/18 Attend Phys: Terry Acevedo, Discharge: Date of : 36 Date of Service: 08/01/18 1547 Report #: [id number] Pulmonary Valve PV Peak Randy.: 1.55 m/s PV Peak Gr.: 13.05 mmHg UT End Vmax: 1.15 m/s Tricuspid Valve TR Peak Randy.: 3.60 m/s RAP Estimate: 10.00 mmHg TR Peak Gr.: 51.96 mmHg PA Pressure: 62.00 mmHg Left Ventricle Left ventricle is borderline dilated. Mild concentric left ventricular hypertrophy. Left ventricular systolic function is severely decreased. LVEF is 25%. Right Ventricle Right ventricle is hypokinetic. Atria Left atrium is dilated. Aortic Valve Aortic valve leaflets are calcified with decreased opening. Mild aortic regurgitation. Mitral Valve The mitral valve is normal in structure. Moderate mitral regurgitation. No evidence of mitral valve stenosis. Tricuspid Valve The tricuspid valve is normal in structure. Moderate to severe tricuspid regurgitation. Estimated PAP of 62 mmHg. Pulmonic Valve The pulmonary valve is normal in structure. Mild to moderate pulmonic regurgitation. Great Vessels Aortic root is dilated. Aortic arch is dilated. IVC is dilated and collapses >50% with inspiration. Pericardium There is no pericardial effusion. <Conclusion> Left ventricle is borderline dilated. [facility] [address] [place] [address] 2 D/M-MODE ECHOCARDIOGRAM Name: KATERINA BANKS Room #: 213-P [facility] [place] IN ..#: [id number] Admission: 07/28/18 Attend Phys: eTrry Acevedo, Discharge: Date of : 38 Date of Service: 08/01/18 154 Report #: [id number] Left ventricular systolic function is severely decreased. Left atrium is dilated. Mild aortic regurgitation. Moderate mitral regurgitation. Moderate to severe tricuspid regurgitation. Estimated PAP of 62 mmHg. There is no pericardial effusion. <ELECTRONICALLY SIGNED> By: Pritesh Mcdowell MD 08/01/18 1547 46 46 Pritesh Mcdowell MD /INF
--- NOTE | ~2018-07-27 | EKG ---
[address] [address] ELECTROCARDIOGRAM REPORT Name: KATERINA BANKS Room #: 213-P ADM IN M.R.#: [id number] Admission: 07/28/18 Attend Phys: Terry Acevedo MD Discharge: Date of : 38 Report #: [id number] THIS REPORT FOR: //name// [facility] Test Date: 2018-07-29 Test Time: 12:51:56 Pat Name: KATERINA BANKS Department: Room: 213 Gender: F Publication Specialist: AIDA : 1940 Requested By: John Jacobson Order Number: [id number] MD: John Jacobson Measurements Intervals [place] Rate: 60 P: 86 [place]: 78 QRS: 146 QRSD: 183 T: -63 QT: 620 QTc: 620 Interpretive Statements Atrial-sensed ventricular-paced rhythm No further analysis attempted due to paced rhythm Baseline wander in lead(s) V6 Compared to ECG 07/15/2018 16:22:39 No significant changes Electronically Signed On 08-01-2018 17:11:55 CDT by John Jacobson [email or web address] <ELECTRONICALLY SIGNED> By: John Jacobson MD 08/01/18 1711 1251 1251 John Jacobson MD /EPI
--- NOTE | ~2018-07-27 | HC ---
[facility] [place] [address] CONSULTATION Name: KATERINA BANKS Room #: 246-P ADM IN M.R.#: [id number] Admission: 07/28/18 Attend Phys: Terry Acevedo MD Discharge: Date of : 38 Report #: [id number] THIS REPORT FOR: //name// CC: Terry Higginbotham REASON FOR CONSULTATION: Post-surgical management for epicardial LV lead placement. HISTORY OF PRESENT ILLNESS: The patient is a 77-year-old female who I followed for quite some time, recently discharged after she presented with acute on chronic congestive heart failure with low cardiac output. At that time, I recommended that we upgraded to a Bi-V ICD with placement of a new LV lead. However, a venogram showed that she had a long occlusion as she had 3 previous leads within that subclavian vessel. As such, she underwent elective epicardial lead placement yesterday without complications. Her chest tube was removed this morning. She denies any change in her shortness of breath. She has some inspiratory chest pain at the incision site. She denies any PND, orthopnea, presyncope or syncope. PAST MEDICAL HISTORY: 1. Coronary artery disease, status post CABG. 2. Ischemic cardiomyopathy, EF of 20-25%. 3. Ascending aortic dissection, status post repair in 1991. 4. Hypertension. 5. Hyperlipidemia. 6. Obstructive sleep apnea. 7. Breast cancer. 8. Sick sinus syndrome, status post St. Catrachito dual chamber pacemaker implantation in March 2017. 9. History of recurrent atypical atrial flutter, status post ablation. 10. Diagnosis of acute congestive heart failure in May 2017. 11. Cardiac catheterization on 07/30/2017, by Dr. Bender showing a left main 20% LAD, 50-60% proximal RCA, 100% with distal collaterals. 12. Upgrade to a St. Catrachito dual chamber ICD. 13. Status post AV node ablation. ALLERGIES: Include multiple things including ATENOLOL, ATORVASTATIN, BACTRIM, CEPHALEXIN, , CLONIDINE, IBUPROFEN, METOCLOPRAMIDE, NITROFURANTOIN, PENICILLIN, and SIMVASTATIN. MEDICATIONS: Have been reviewed and she has been off of her blood thinners and we would like her to remain off of her blood thinners for another week or so. REVIEW OF SYSTEMS: A 12-point review of systems was performed and was negative other than what I mentioned above. [facility] [address] [place] [address] CONSULTATION Name: KATERINA BANKS Room #: 246-P [facility] IN [facility].#: [id number] Admission: 07/28/18 Attend Phys: Terry Acevedo MD Discharge: Date of : 38 Report #: [id number] PHYSICAL EXAMINATION: VITAL SIGNS: Temperature is 36.0, pulse 61, respirations 23, blood pressure 104/47, and sats are 98%. GENERAL: She is in no acute distress. HEENT: Oropharynx is clear. NECK: Supple, with no thyromegaly. HEART: Regular rate and rhythm with no murmurs, rubs, or gallops. LUNGS: Clear to auscultation bilaterally. ABDOMEN: Soft, nontender, nondistended with no hepatosplenomegaly. EXTREMITIES: There is no clubbing, cyanosis, or edema. LABS: White count 9.3, hemoglobin 15, platelets 156. Chemistries: Sodium 137, potassium 4.1, BUN 43, creatinine 2.0. Device interrogation this morning shows normal device function. ASSESSMENT: 1. Ischemic cardiomyopathy. 2. Atrial fibrillation/atrial flutter. 3. Recent acute on chronic congestive heart failure. 4. Upgrade to a biventricular ICD. 5. Chronic renal insufficiency. SUMMARY: The patient is status post upgrade to a Bi-V ICD. Her incision appears to be healing nicely and on EKG it appears that her QRS duration is narrowed, hopefully this will help with her cardiac output. In terms of her atrial fibrillation/atrial flutter, we will continue with the current dose of amiodarone and we will hold off on resuming anticoagulation until I see her in the outpatient setting. With regards to her cardiomyopathy, we can continue with the current medications including carvedilol and torsemide. We will need to closely monitor her volume status, electrolytes, and renal function while she is here. We will continue to follow. <ELECTRONICALLY SIGNED> By: John Jacobson MD 07/29/18 1503 1142 1308 John Jacobson MD /nt
[~2018-07-27 11:05] MED LIST changes: +COLACE100 MG PO; +COREG6.25 MG PO; +COZAAR 50 MG TA50 MG PO; +DEMADEX 2020 MG/1 TA PO; +K-DUR 20 MEQ T20 MEQ PO
[2018-07-28] VITALS (13 sets, daily range): BP systolic 120–135; BP diastolic 51–82
[2018-07-28 17:21] LABS: HEMATOCRIT 48.3 % (37.0-47.0); HEMOGLOBIN 16.2 gm/dL (12.0-15.0); MCH 35.5 pg (26.0-34.0); MCHC 33.6 g/dL (28.0-37.0); MCV 105.5 fL (80.0-100.0); RBC 4.58 mil/uL (4.20-5.00); RDW 16.6 % (10.5-14.5); WBC 11.6 thou/uL (4.0-11.0)
[2018-07-28 17:34] LABS: ALBUMIN 3.2 g/dL (3.4-5.0); CALCIUM 9.3 mg/dL (8.5-10.1); MAGNESIUM 2.4 mg/dL (1.8-2.4); POTASSIUM 4.2 mmol/L (3.5-5.1); TOTAL BILIRUBIN 0.9 mg/dL (<0.1-1.0); TOTAL PROTEIN 7.2 g/dL (6.4-8.2)
[2018-07-29] VITALS (19 sets, daily range): BP systolic 89–131; BP diastolic 44–65
[2018-07-29 02:08] LABS: GLYCOHEMOGLOBIN (HGB A1C) 5.9 % (4.8-5.6)
[2018-07-29 05:25] LABS: HEMATOCRIT 46.2 % (37.0-47.0); HEMOGLOBIN 15.1 gm/dL (12.0-15.0); MCH 34.4 pg (26.0-34.0); MCHC 32.7 g/dL (28.0-37.0); MCV 105.1 fL (80.0-100.0); RBC 4.4 mil/uL (4.20-5.00); RDW 16.3 % (10.5-14.5); WBC 9.3 thou/uL (4.0-11.0)
[2018-07-29 05:30] LABS: CALCIUM 9.2 mg/dL (8.5-10.1); MAGNESIUM 2.5 mg/dL (1.8-2.4); POTASSIUM 4.1 mmol/L (3.5-5.1)
[2018-07-30 00:45] VITALS: BP 111/56
[2018-07-30 04:55] VITALS: BP 108/56
[2018-07-30 05:59] LABS: CALCIUM 9.1 mg/dL (8.5-10.1); CREATININE 2.3 mg/dL (0.6-1.0); MAGNESIUM 2.5 mg/dL (1.8-2.4); POTASSIUM 4.8 mmol/L (3.5-5.1)
[2018-07-30 07:28] VITALS: BP 120/58
[2018-07-30 11:23] VITALS: BP 117/56
[2018-07-30 15:57] VITALS: BP 102/53
[2018-07-30 20:05] VITALS: BP 125/68
[2018-07-31 04:55] VITALS: BP 119/60
[2018-07-31 06:39] LABS: CALCIUM 9.3 mg/dL (8.5-10.1); CREATININE 2.3 mg/dL (0.6-1.0); MAGNESIUM 2.5 mg/dL (1.8-2.4); POTASSIUM 3.9 mmol/L (3.5-5.1)
[2018-07-31 08:01] VITALS: BP 130/64
[2018-07-31 10:31] VITALS: BP 114/56
[2018-07-31 19:50] VITALS: BP 127/66
[2018-08-01 04:38] LABS: CREATININE 1.9 mg/dL (0.6-1.0); MAGNESIUM 2.3 mg/dL (1.8-2.4); POTASSIUM 3.9 mmol/L (3.5-5.1)
[2018-08-01 04:45] VITALS: BP 121/69
[2018-08-01 07:31] VITALS: BP 128/67
[2018-08-01 11:33] VITALS: BP 102/50
[2018-08-01 15:28] VITALS: BP 119/63
[2018-08-01 20:13] VITALS: BP 121/57
[2018-08-02 04:21] LABS: CALCIUM 8.6 mg/dL (8.5-10.1); CREATININE 1.7 mg/dL (0.6-1.0); POTASSIUM 3.7 mmol/L (3.5-5.1)
[2018-08-02 04:32] VITALS: BP 126/69
[2018-08-02 07:29] VITALS: BP 132/75
[2018-08-02] MEDS ORDERED: TYLENOL EXTRA500 MG PO (07:35)
[2018-08-02] MEDS ORDERED: NORCO 5-325 TA1 EACH PO ×2 (07:35→10:44)
[2018-08-02] MEDS ORDERED: HEPARIN SO5000 UNIT/ SUBQ (07:35)
[2018-08-02] MEDS ORDERED: IPRAT-ALBUT 0.5-3 ML INH (07:50)
== END 2018-08-02 15:51 | DRG 226 ==
LOC: PRE 11:05 → TBA 07-28 05:29 → ICU 07-28 05:29 → PRE 07-28 10:48 → ICU 07-28 14:18 → 2N 07-29 17:13
PROVIDERS: Internal Medicine; Internal Medicine Cardiovascular Disease; Thoracic Surgery (Cardiothoracic Vascular Surgery)
PROC: 0JH609Z Insertion of Cardiac Resynchronization Defibrillator Pulse Generator into Chest Subcutaneous Tissue and Fascia, Open Approach (ICD-10-PCS; principal; 2018-07-28)
PROC: 0JPT0PZ Removal of Cardiac Rhythm Related Device from Trunk Subcutaneous Tissue and Fascia, Open Approach (ICD-10-PCS; principal; 2018-07-28)
PROC: 02PA3MZ Removal of Cardiac Lead from Heart, Percutaneous Approach (ICD-10-PCS; principal; 2018-07-28)
PROC: 02HK3KZ Insertion of Defibrillator Lead into Right Ventricle, Percutaneous Approach (ICD-10-PCS; principal; 2018-07-28)
PROC: 02HL3KZ Insertion of Defibrillator Lead into Left Ventricle, Percutaneous Approach (ICD-10-PCS; principal; 2018-07-28)
PROC: 02H63KZ Insertion of Defibrillator Lead into Right Atrium, Percutaneous Approach (ICD-10-PCS; principal; 2018-07-28)
DX: I48.91 Unspecified atrial fibrillation (principal); N17.0 Acute kidney failure with tubular necrosis; I13.0 Hypertensive heart and chronic kidney disease with heart failure and stage 1 through stage 4 chronic kidney disease, or unspecified chronic kidney disease; I50.22 Chronic systolic (congestive) heart failure; J96.10 Chronic respiratory failure, unspecified whether with hypoxia or hypercapnia; I25.5 Ischemic cardiomyopathy; I48.92 Unspecified atrial flutter; I25.10 Atherosclerotic heart disease of native coronary artery without angina pectoris; F41.9 Anxiety disorder, unspecified; N18.9 Chronic kidney disease, unspecified; E78.5 Hyperlipidemia, unspecified; E03.9 Hypothyroidism, unspecified; I50.84 End stage heart failure; G47.33 Obstructive sleep apnea (adult) (pediatric); J44.9 Chronic obstructive pulmonary disease, unspecified; I49.5 Sick sinus syndrome; Z85.3 Personal history of malignant neoplasm of breast; Z88.1 Allergy status to other antibiotic agents; Z88.0 Allergy status to penicillin; Z88.8 Allergy status to other drugs, medicaments and biological substances; Z92.3 Personal history of irradiation; Z88.2 Allergy status to sulfonamides; Z90.710 Acquired absence of both cervix and uterus; I25.2 Old myocardial infarction; Z87.440 Personal history of urinary (tract) infections
CPT/HCPCS: 10078; 10081; 50010; 50101; 50386; 50417; 50455; 50497; 51301; 53358; 54118; 56524; 56525; 56526; 56528; 56668; 56760; 62110; 62900; 65020; 65040; 65043; 65105; 65129; 70005

== ENCOUNTER 2018-11-15 12:14 | Inpatient (IN) | payer OTHER ==
[~2018-11-15] VITALS: Ht 165.1 cm; Wt 77.6 kg
[2018-11-15 12:14] VITALS: BP 138/53
[~2018-11-15 12:14] MED LIST changes: +HEPARIN SO5000 UNIT/ SUBQ; +IPRAT-ALBUT 0.5-3 ML INH
[2018-11-15 13:06] LABS: ABSOLUTE NEUTROPHILS 4.4 thou/uL (1.4-8.2); BASOPHILS 0.3 % (0.0-2.0); EOSINOPHILS 0.3 % (0.0-3.0); HEMATOCRIT 43.5 % (37.0-47.0); HEMOGLOBIN 14.6 gm/dL (12.0-15.0); LYMPHOCYTES 10.6 % (24.0-44.0); MCH 35.7 pg (26.0-34.0); MCHC 33.5 g/dL (28.0-37.0); MCV 106.3 fL (80.0-100.0); MONOCYTES 7.9 % (1.0-8.0); POLYS 80.9 % (36.0-66.0); RBC 4.09 mil/uL (4.20-5.00); RDW 16.7 % (10.5-14.5); WBC 5.4 thou/uL (4.0-11.0)
--- NOTE | 2018-11-15 13:16 | EKG ---
[place] [address] [facility] [place] [address] ELECTROCARDIOGRAM REPORT Name: KATERINA BANKS [facility] [id number] Admission: 11/15/18 Attend Phys: Discharge: Date of : 38 Report #: [id number] THIS REPORT FOR: //name// [facility] ED Test Date: 2018-11-15 Test Time: 12:51:37 Pat Name: KATERINA BANKS Department: Room: Gender: F Diamond Sizer: JAMESAram : 1940 Requested By: Benjamin Sequeira Order Number: [id number] MD: John Jacobson Measurements Intervals [place] Rate: 64 P: 0 HI: 206 QRS: 145 QRSD: 160 T: 142 QT: 681 QTc: 703 Interpretive Statements Atrial-ventricular dual-paced complexes No further analysis attempted due to paced rhythm Compared to ECG 07/29/2018 12:51:56 Atrial-sensed ventricular-paced complex(es) or rhythm no longer present Electronically Signed On 11-15-2018 13:16:19 STEAMFITTER APPRENTICE by John Jacobson [email or web address] <ELECTRONICALLY SIGNED> By: John Jacobson MD 11/15/18 1316 1251 1251 John Jacobson MD /EPI
[2018-11-15 13:20] LABS: ANION GAP 9 mmol/L (7-16); BUN 39 mg/dL (7-18); CALCIUM 9.3 mg/dL (8.5-10.1); CHLORIDE 99 mmol/L (98-107); CO2 29 mmol/L (21-32); CREATININE 1.8 mg/dL (0.6-1.0); GLUCOSE 123 mg/dL (74-106); SODIUM 137 mmol/L (136-145)
[2018-11-15 13:28] LABS: TROPONIN-I <0.06 ng/mL (<0.06)
[2018-11-15 13:52] LABS: ANISOCYTOSIS 1+; BURR CELLS OCCASIONAL; LARGE PLATELETS FEW; MACROCYTES 1+; PLATELET COUNT 137 thou/uL (150-400)
[2018-11-15 15:04] LABS: URINE COLOR YELLOW
[2018-11-15 15:05] LABS: URINE BILIRUBIN NEGATIVE (Negative); URINE BLOOD NEGATIVE (Negative); URINE CLARITY CLEAR; URINE GLUCOSE-RANDOM* NEGATIVE (Negative); URINE KETONES NEGATIVE (Negative); URINE LEUKOCYTES-REFLEX NEGATIVE (Negative); URINE NITRITE-REFLEX NEGATIVE (Negative); URINE PROTEIN (DIPSTICK) TRACE (Negative); URINE UROBILINOGEN 0.2 E.U./dl (0.2-1.0)
[2018-11-15 17:46] VITALS: BP 128/61
[2018-11-15 17:54] VITALS: BP 138/60
[2018-11-15 19:00] VITALS: BP 129/55
[2018-11-15 20:07] VITALS: BP 135/71
[2018-11-16 00:20] VITALS: BP 121/86
[2018-11-16 04:09] LABS: ALBUMIN 3.3 g/dL (3.4-5.0); CREATININE 1.7 mg/dL (0.6-1.0); MAGNESIUM 2.2 mg/dL (1.8-2.4); POTASSIUM 3.6 mmol/L (3.5-5.1); TOTAL BILIRUBIN 0.9 mg/dL (<0.1-1.0); TOTAL PROTEIN 6.9 g/dL (6.4-8.2)
[2018-11-16 04:14] LABS: HEMATOCRIT 39.9 % (37.0-47.0); HEMOGLOBIN 13.4 gm/dL (12.0-15.0); MCH 35.6 pg (26.0-34.0); MCHC 33.7 g/dL (28.0-37.0); MCV 105.8 fL (80.0-100.0); RBC 3.77 mil/uL (4.20-5.00); RDW 16.5 % (10.5-14.5)
[2018-11-16 04:36] VITALS: BP 134/68
--- NOTE | 2018-11-16 05:20 | NUR ---
ASSUMED PT CARE AT 1900. PT A/OX4, VITAL SIGNS STABKLE, ASSESSMENT CHARTED. NO COMPLAINTS OF PAIN/CHEST PAIN. PT CALLS APPROPRIATELY FOR HELP WHEN GETTING OUT OF BED. PT RESTED WELL THROUGH THE NIGHT. WILL CONTINUE TO MONITOR.
[2018-11-16 08:10] LABS: BE(vivo) 2.4 mmol/L (-2 to +3); HCO3 25.3 mmol/L (22.0-26.0); PCO2 34.4 mmHg (35.0-45.0); PO2 83.5 mmHg (80.0-100.0); pH 7.485 (7.360-7.450)
[2018-11-16 08:19] VITALS: BP 126/64
[2018-11-16 12:51] VITALS: BP 132/68
--- NOTE | 2018-11-16 15:01 | NUR ---
ASSESSMENT-PT LIVES ALONE IN AN APT BUT SHE SAYS HER S.O. IS OVER THERE ALL THE TIME AND HE JUST LIVES DOWN THE BLOCK. PT HAS A WALKER BUT SHE SAYS IT IS TOO WIDE TO GO AROUND HER CORNER AND SHE IS ASKING ABOUT A SMALLER WALKER FOR HOME USE. PT SAYS SHE HAS HAD HH SERVICES THRU [facility]. PT HAS A NEBULIZER AND A C-PAP. PT HAS A RAMP TO GET INTO THE APT. WILL CHECK THERAPY REC. FOR PT. FOLLOWING TO ASSIST WITH DC PLANNING.
[2018-11-16 15:46] VITALS: BP 117/70
--- NOTE | 2018-11-16 19:41 | NUR ---
ASSUMED CARE OF PT AT APPROX 0700. PT IS ALERT AND ORIENTED X4, ABLE TO MAINTAIN 02 SAT ON RA. ASSESSMENT CHARTED. MONITORED ON TELE. PT UP TO BSC WITH STEADY GAIT. PT OFF UNIT FOR TESTING TODAY 2 TIMES. TOLERATED WELL. PT STATES SHE NEEDS REST AND WOULD LIKE TO NAP SHE HAS NOT SLEPT. FOLLOWING FLUID INSTRUCTIONS. TALKED WITH PATIENT SHE HAD SEVERAL QUESTIONS ABOUT SALT SUBSTITUTES AND CHANGING HER DIET. PT STATES SHE THINKS ITS TIME TO ACTUALLY CHANGE. PT HAS POSITIVE ATTITUDE. WILL CONT. TO MONITOR.
[2018-11-16 20:11] VITALS: BP 124/57
--- NOTE | 2018-11-17 04:37 | NUR ---
ASSUMED PT CARE AT 1900. PT WAS A/OX4, VITAL; SIGNS STABLE. ASSESSMENT CHARTED. NO COMPLAINTS OF CHEST PAIN. PT HAD AN EPISODE OF SOA, O2 INCREASED FROM 2 TO 3L, SATING AT 98%. PAIN ADEQUATELY MANAGED WITH PAIN MEDICATIONS. PT UNABLE TO BE COMFORTABLE FORTHE MOST PART OF THE NIGHT. PROGRESSING TOWARD PLAN OF CARE. WILL CONTINUE TO MONITOR.
[2018-11-17 05:00] VITALS: BP 133/64
[2018-11-17 07:25] VITALS: BP 143/74
[2018-11-17 09:54] LABS: ALBUMIN 3.6 g/dL (3.4-5.0); CALCIUM 9.3 mg/dL (8.5-10.1); CREATININE 1.9 mg/dL (0.6-1.0); POTASSIUM 4.2 mmol/L (3.5-5.1); TOTAL PROTEIN 7.5 g/dL (6.4-8.2)
--- NOTE | 2018-11-17 13:38 | NUR ---
Spoke with patient regarding dc planning. She reports she is interested in Hospice eval. She reports she is "done." Reviewed hospice services and agencies. Patient interested in [facility]. Referral sent to [facility]. They plan to meet with patient today at 1400. Patient agreeable.
[2018-11-17 15:05] VITALS: BP 116/58
[2018-11-17 15:12] VITALS: BP 116/58
--- NOTE | 2018-11-17 15:58 | NUR ---
PT. HAD HH WITH [facility] FAXED CLINICAL UPDATE TO AGENCY LEFT [facility] WITH ADM. THAT UPDATE SENT. PT. WILL BE DISCHARGED TO HOME WITH [facility]. [facility] NOTIFIED. DCP TO FOLLOW.
--- NOTE | 2018-11-17 15:58 | NUR ---
[facility] met with patient and patient wants to return home with their services. They plan to obtain a new walker that will fit better in her apt. They plan to admit patient to their services at home so will need to be called to meet patient at time of dc. Sonny from [facility] came to see patient. He reports rec HH care plane captain approx a week and orders from her PCP Dr Higginbotham. Updated patient may be chosing hospice services and will alert at dc. Casemgt following.
--- NOTE | 2018-11-17 18:35 | NUR ---
PT DECIDED TO GO HOME WITH HOSPICE TOMMORROW. VSS. PAIN CONTROLLED. VOIDING PER BSC. LASIX GIVEN, PT DIURESING.
[2018-11-17 20:24] VITALS: BP 136/74
--- NOTE | 2018-11-17 20:42 | NUR ---
PT LAYING IN BED IN NAD. C/O PAIN. TREATED PROMTLY. DENIED OTHER NEEDS AND REQUESTS.
[2018-11-18 03:43] VITALS: BP 131/58
[2018-11-18 05:07] LABS: HEMATOCRIT 40.9 % (37.0-47.0); HEMOGLOBIN 13.2 gm/dL (12.0-15.0); MCH 34.3 pg (26.0-34.0); MCHC 32.3 g/dL (28.0-37.0); MCV 106.2 fL (80.0-100.0); RBC 3.85 mil/uL (4.20-5.00); WBC 4.6 thou/uL (4.0-11.0)
[2018-11-18 05:24] LABS: ALBUMIN 3.3 g/dL (3.4-5.0); CALCIUM 8.8 mg/dL (8.5-10.1); MAGNESIUM 2.4 mg/dL (1.8-2.4); POTASSIUM 4.8 mmol/L (3.5-5.1); TOTAL BILIRUBIN 0.9 mg/dL (<0.1-1.0)
[2018-11-18 08:09] VITALS: BP 116/63
[2018-11-18] MEDS ORDERED: PERCOCET PO (10:30)
[2018-11-18] MEDS ORDERED: MELATONIN5 M1 PO (10:30)
[2018-11-18 12:27] VITALS: BP 122/59
--- NOTE | 2018-11-18 12:29 | NUR ---
PLANS FOR DC HOME TODAY WITH HOSPICE SERVICES FROM [facility]. SPOKE WITH PT IN ROOM AND HER S.O. BILL BY PHONE. BOTH AGREEABLE TO DC HOME WITH HOSPICE TODAY. SPOKE WITH TOMAS AT HOSPICE WHO CONFIRMS RN CAN BE IN HOME AROUND 1630 TODAY AND O2 CONCENTRATOR, BCS AND WALKER TO BE DELIVERED TO HOME TODAY AND BILL WILL BE THERE TO RECEIVE. PT WITHOUT PORTABLE O2 AND HOME IN PRIVATE CARE DIFFICULT SO W/C VAN TRANSPORT [facility]RU [facility] SET UP BY DC [employer] WITH CM DEPT VOUCHING COST. PT AND BILL SAY THEY DO NOT HAVE THE $ TO COVER COST. DC ORDERS AND REQUESTED CLINICAL FAXED TO HOSPICE INTAKE BY DC [employer]USTRI[employer] MAINTENA[employer]CE [employer]. RN UPDATED.
--- NOTE | 2018-11-18 12:37 | NUR ---
PT. DISCHARGING TODAY TO HOME WITH [facility]. FAXED DC ORDERS/SUMMARY TO AGENCY AND SPOKE WITH LEILA IN ADM. AND THEY RECEIVED DC ORDERS. THEY WILL HAVE A RN AT PT'S HOME TODAY. ARRANGED TRANSPORT VIA [employer] [facility] WITH [facility]. NOTIFIED SON (HERNAN) OF DISCHARGE AND TIME OF TRANSPORT. NOTIFIED UNIT OF TIME OF TRANSPORT. OUTSIDE DNR FORM ON CHART.
[2018-11-18 12:53] VITALS: BP 116/58
--- NOTE | 2018-11-18 14:57 | NUR ---
ASSESSMENT CHARTED - MEDS PER JAN - NO CO'S OF NAUSEA. GIVEN PERCOCET FOR PAIN WITH MIN RELIEF AND TYLENOL WITH MOD RELIEF. NIDA DIET AND FLUIDS. UP TO THE BSC WITH MIN ASSIST. PT HOME THIS AFTERNOON VIA WHEELCHAIR VAN - HOSPICE WILL MEET PATIENT AT HER HOME AT 1600. PT SHORT OF BREATH AT REST. PT LEFT UNIT VIA WHEELCHAIR - WILL BE MET AT HOME BY SIG OTHER - NO CO'S AT TIME OF D/C.
== END 2018-11-18 14:54 | disposition hospice, home (50) | DRG 682 ==
LOC: ER 12:14 → EROBS 17:27 → 2N 17:27
PROVIDERS: Emergency Medicine; Nurse Practitioner; ADMIT Internal Medicine
PROC: 5A09357 Assistance with Respiratory Ventilation, Less than 24 Consecutive Hours, Continuous Positive Airway Pressure (ICD-10-PCS; principal; 2018-11-17)
PROC: 5A09357 Assistance with Respiratory Ventilation, Less than 24 Consecutive Hours, Continuous Positive Airway Pressure (ICD-10-PCS; 2018-11-18)
DX: N17.9 Acute kidney failure, unspecified (principal); I50.23 Acute on chronic systolic (congestive) heart failure; J96.01 Acute respiratory failure with hypoxia; I13.0 Hypertensive heart and chronic kidney disease with heart failure and stage 1 through stage 4 chronic kidney disease, or unspecified chronic kidney disease; I47.2 Ventricular tachycardia; N18.4 Chronic kidney disease, stage 4 (severe); J44.9 Chronic obstructive pulmonary disease, unspecified; G47.33 Obstructive sleep apnea (adult) (pediatric); I25.5 Ischemic cardiomyopathy; I25.10 Atherosclerotic heart disease of native coronary artery without angina pectoris; Z60.2 Problems related to living alone; M62.84 Sarcopenia; I48.0 Paroxysmal atrial fibrillation; E78.5 Hyperlipidemia, unspecified; E03.9 Hypothyroidism, unspecified; Z90.710 Acquired absence of both cervix and uterus; I25.2 Old myocardial infarction; Z95.0 Presence of cardiac pacemaker; Z88.6 Allergy status to analgesic agent; Z88.0 Allergy status to penicillin; Z88.2 Allergy status to sulfonamides; Z88.8 Allergy status to other drugs, medicaments and biological substances; Z87.891 Personal history of nicotine dependence; Z82.49 Family history of ischemic heart disease and other diseases of the circulatory system; Z85.3 Personal history of malignant neoplasm of breast
CPT/HCPCS: 10081